=== PATIENT | male | born 1980 | race Caucasian/White ===

== ENCOUNTER 2016-04-13 23:03 | Emergency (ER) | payer SELFPAY ==
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
[2016-04-14] MEDS ORDERED: CYCLOBENZAPRINE 5 MG TAB PO STA (00:28)
[2016-04-14 00:53] VITALS: BP 122/65; PULSE 80; RESP 20; TEMP 98.1
== END 2016-04-14 00:53 | disposition home or self-care (01) ==
LOC: EC 23:03
DX: F07.81 Postconcussional syndrome (principal); M54.2 Cervicalgia; I10 Essential (primary) hypertension; F17.200 Nicotine dependence, unspecified, uncomplicated; W20.8XXA Other cause of strike by thrown, projected or falling object, initial encounter; Y99.0 Civilian activity done for income or pay
CPT/HCPCS: 70450; 72125; 99283

== ENCOUNTER 2016-10-08 13:14 | Emergency (ER) | payer OTHER ==
[2016-10-08 13:34] VITALS: BP 125/65; PULSE 97; RESP 18; TEMP 98
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
== END 2016-10-08 13:57 | disposition home or self-care (01) ==
LOC: EC 13:14
DX: Z76.0 Encounter for issue of repeat prescription (principal); F17.200 Nicotine dependence, unspecified, uncomplicated; Z79.899 Other long term (current) drug therapy
CPT/HCPCS: 99281

== ENCOUNTER 2016-12-15 03:19 | Observation (INO) | payer OTHER ==
[2016-12-15] MEDS ORDERED: ASPIRIN 81 MG PO STA (03:40)
[2016-12-15] MEDS ORDERED: NITROGLYCERIN SL TABS 0.4 MG TAB SUBLINGUAL STA ×3 (03:40)
--- NOTE | 2016-12-15 03:43 | ED ---
General Adult HPI - General Chief complaint: Chest Pain Stated complaint: Chest Pain Time Seen by Provider: 12/15/16 03:34 Source: patient, RN notes reviewed Mode of arrival: ambulatory Limitations: no limitations - History of Present Illness Initial comments: Patient is a pleasant 36-year-old male presenting to the emergency department with chest discomfort. Symptoms have been occurring for up to a year or more. Symptoms have been worse the past 3 days. Patient has had more stress the past 3 days. A mercado has an ache in his chest that does radiate somewhat to the back. Patient has had palpitations. Patient has had more frequent occurrence of his chronic migraines. Patient does have some associated dyspnea and occasional nausea. No diaphoresis. - Related Data Previous Rx's Medication Instructions Recorded Dextroamphetamine/Amphetamine 30 mg PO TID #12 tab 10/08/16 [Adderall] Allergies Allergy/AdvReac Type Severity Reaction Status Date / Time monosodium glutamate [MSG] AdvReac Nausea Verified 10/08/16 13:34 Review of Systems ROS Statement: Those systems with pertinent positive or pertinent negative responses have been documented in the HPI. ROS Other: All systems not noted in ROS Statement are negative. Constitutional: Denies: fever Eyes: Denies: eye pain ENT: Denies: ear pain Respiratory: Reports: dyspnea. Denies: cough Cardiovascular: Reports: chest pain Endocrine: Denies: fatigue Gastrointestinal: Denies: abdominal pain Genitourinary: Denies: dysuria Musculoskeletal: Denies: arthralgia Skin: Denies: rash Neurological: Denies: weakness, confusion Past Medical History Past Medical History: Hypertension Additional Past Medical History / Comment(s): migraines History of Any Multi-Drug Resistant Organisms: None Reported Past Surgical History: Back Surgery, Cholecystectomy, Orthopedic Surgery Additional Past Surgical History / Comment(s): rt shoulder Past Psychological History: No Psychological Hx Reported Smoking Status: Current every day smoker Past Alcohol Use History: Occasional Past Drug Use History: None Reported General Exam Limitations: no limitations General appearance: alert, in no apparent distress Head exam: Present: atraumatic Eye exam: Present: normal appearance, PERRL ENT exam: Present: normal oropharynx Neck exam: Present: normal inspection Respiratory exam: Present: normal lung sounds bilaterally Cardiovascular Exam: Present: regular rate, normal rhythm Expanded Peripheral pulses: 2+: Radial (R), Radial (L), Dorsalis Pedis (R), Dorsalis Pedis (L) GI/Abdominal exam: Present: soft. Absent: tenderness Extremities exam: Present: normal inspection. Absent: pedal edema, calf tenderness Back exam: Present: normal inspection Neurological exam: Present: alert. Absent: motor sensory deficit Psychiatric exam: Present: normal affect, normal mood Skin exam: Present: normal color Course Vital Signs 12/15/16 12/15/16 12/15/16 03:26 04:33 05:02 Temperature 98.0 F Pulse Rate 94 102 H 92 Respiratory 18 16 18 Rate Blood Pressure 142/75 125/68 133/90 O2 Sat by Pulse 98 98 98 Oximetry EKG Findings - EKG Comments: EKG Findings:: Normal sinus rhythm 96. WI 136. QRS 98. QT 346. QTc 437. Normal axis. Normal QRS. No acute ST change. Medical Decision Making - Medical Decision Making Patient reexamined and resting comfortably in bed. Patient states Ativan intensive bite his symptoms at first however now he feels better. Patient was updated on results and plan. Case discussed in detail with Dr. jorgensen, who will admit for observation for Dr. reyes. - Lab Data Result diagrams: 12/15/16 03:45 12/15/16 03:45 Lab Results 12/15/16 12/15/16 12/15/16 Range/Units 03:45 03:45 03:45 WBC 10.8 H (3.8-10.6) k/uL RBC 5.00 (4.30-5.90) m/uL Hgb 16.6 (13.0-17.5) gm/dL Hct 47.1 (39.0-53.0) % MCV 94.2 (80.0-100.0) fL MCH 33.2 (25.0-35.0) pg MCHC 35.3 (31.0-37.0) g/dL RDW 12.5 (11.5-15.5) % Plt Count 342 (150-450) k/uL Neutrophils % 61 % Lymphocytes % 29 % Monocytes % 4 % Eosinophils % 3 % Basophils % 0 % Neutrophils # 6.6 (1.3-7.7) k/uL Lymphocytes # 3.1 (1.0-4.8) k/uL Monocytes # 0.5 (0-1.0) k/uL Eosinophils # 0.3 (0-0.7) k/uL Basophils # 0.1 (0-0.2) k/uL PT (9.0-12.0) sec INR (<1.2) APTT (22.0-30.0) sec D-Dimer (<0.60) mg/L FEU Sodium 141 (137-145) mmol/L Potassium 4.1 (3.5-5.1) mmol/L Chloride 107 (98-107) mmol/L Carbon Dioxide 21 L (22-30) mmol/L Anion Gap 13 mmol/L BUN 12 (9-20) mg/dL Creatinine 0.90 (0.66-1.25) mg/dL Est GFR (MDRD) Af Amer >60 (>60 ml/min/1.73 sqM) Est GFR (MDRD) Non-Af >60 (>60 ml/min/1.73 sqM) Glucose 100 H (74-99) mg/dL Calcium 9.5 (8.4-10.2) mg/dL Magnesium 2.0 (1.6-2.3) mg/dL Total Bilirubin 0.6 (0.2-1.3) mg/dL AST 27 (17-59) U/L ALT 38 (21-72) U/L Alkaline Phosphatase 67 (38-126) U/L Total Creatine Kinase 274 H (55-170) U/L CK-MB (CK-2) 1.3 (0.0-2.4) ng/mL CK-MB (CK-2) Rel Index 0.5 Troponin I <0.012 (0.000-0.034) ng/mL Total Protein 7.3 (6.3-8.2) g/dL Albumin 4.6 (3.5-5.0) g/dL 12/15/16 Range/Units 03:45 WBC (3.8-10.6) k/uL RBC (4.30-5.90) m/uL Hgb (13.0-17.5) gm/dL Hct (39.0-53.0) % MCV (80.0-100.0) fL MCH (25.0-35.0) pg MCHC (31.0-37.0) g/dL RDW (11.5-15.5) % Plt Count (150-450) k/uL Neutrophils % % Lymphocytes % % Monocytes % % Eosinophils % % Basophils % % Neutrophils # (1.3-7.7) k/uL Lymphocytes # (1.0-4.8) k/uL Monocytes # (0-1.0) k/uL Eosinophils # (0-0.7) k/uL Basophils # (0-0.2) k/uL PT 10.2 (9.0-12.0) sec INR 1.0 (<1.2) APTT 25.9 (22.0-30.0) sec D-Dimer <0.17 (<0.60) mg/L FEU Sodium (137-145) mmol/L Potassium (3.5-5.1) mmol/L Chloride (98-107) mmol/L Carbon Dioxide (22-30) mmol/L Anion Gap mmol/L BUN (9-20) mg/dL Creatinine (0.66-1.25) mg/dL Est GFR (MDRD) Af Amer (>60 ml/min/1.73 sqM) Est GFR (MDRD) Non-Af (>60 ml/min/1.73 sqM) Glucose (74-99) mg/dL Calcium (8.4-10.2) mg/dL Magnesium (1.6-2.3) mg/dL Total Bilirubin (0.2-1.3) mg/dL AST (17-59) U/L ALT (21-72) U/L Alkaline Phosphatase (38-126) U/L Total Creatine Kinase (55-170) U/L CK-MB (CK-2) (0.0-2.4) ng/mL CK-MB (CK-2) Rel Index Troponin I (0.000-0.034) ng/mL Total Protein (6.3-8.2) g/dL Albumin (3.5-5.0) g/dL - Radiology Data Radiology results: image reviewed (Chest x-ray shows mild atelectasis versus early infiltrate) Disposition Clinical Impression: Chest pain Disposition: ADMITTED IP TO THIS [facility] Referrals: Marcin Skinner MD [Primary Care Provider] - 1-2 days Decision Time: 05:27
[2016-12-15 04:05] LABS: Basophils # (A) 0.1 k/uL (0-0.2); Basophils % (A) 0 %; CH 33.1; CHCM 35.3; Eosinophils # (A) 0.3 k/uL (0-0.7); Eosinophils % (A) 3 %; HCT 47.1 % (39.0-53.0); HDW 2.54; HGB 16.6 gm/dL (13.0-17.5); Luc # (Auto) 0.26; Luc % (Auto) 2; Lymphocytes # (A) 3.1 k/uL (1.0-4.8); Lymphocytes % (A) 29 %; MCH 33.2 pg (25.0-35.0); MCHC 35.3 g/dL (31.0-37.0); MCV 94.2 fL (80.0-100.0); Mean Platelet Volume 6.9; Monocytes # (A) 0.5 k/uL (0-1.0); Monocytes % (A) 4 %; Neutrophils # (A) 6.6 k/uL (1.3-7.7); Neutrophils % (A) 61 %; RDW 12.5 % (11.5-15.5); WBC 10.8 k/uL (3.8-10.6); WBC (Perox) 10.32
--- NOTE | 2016-12-15 04:07 | XR ---
EXAM: XR Chest, 2 Views CLINICAL HISTORY: Reason: Chest Pain TECHNIQUE: Frontal and lateral views of the chest. COMPARISON: No relevant prior studies available. FINDINGS: Lungs: Noted is consolidation. Streaky density in the medial right lower lung. Pleural space: Unremarkable. No pneumothorax. Heart: Unremarkable. No cardiomegaly. Mediastinum: Unremarkable. Bones/joints: Unremarkable. Tubes, lines and devices: Overlying chest leads obscure portion of the chest. IMPRESSION: Mild atelectasis versus early infiltrate in the medial right lower lung. Follow-up as indicated. No effusion
[2016-12-15 04:11] LABS: ALT 38 U/L (21-72); AST 27 U/L (17-59); Alkaline Phosphatase 67 U/L (38-126); Anion Gap 13 mmol/L; Blood Urea Nitrogen 12 mg/dL (9-20); Calcium 9.5 mg/dL (8.4-10.2); Carbon Dioxide 21 mmol/L (22-30); Chloride 107 mmol/L (98-107); Glucose 100 mg/dL (74-99); Non-African American GFR(MDRD) >60 (>60 ml/min/1.73 sqM); Partial Thromboplastin Time 25.9 sec (22.0-30.0); Potassium 4.1 mmol/L (3.5-5.1); Prothrombin Time 10.2 sec (9.0-12.0); Sodium 141 mmol/L (137-145); Total Bilirubin 0.6 mg/dL (0.2-1.3); Total Protein 7.3 g/dL (6.3-8.2)
[2016-12-15] MEDS ORDERED: LORazepam 2 MG/ML SYRINGE IV STA (04:21)
[2016-12-15 04:36] LABS: Creatine Kinase 274 U/L (55-170)
[2016-12-15 04:49] LABS: Creatine Kinase MB 1.3 ng/mL (0.0-2.4); Troponin I <0.012 ng/mL (0.000-0.034)
[2016-12-15] MEDS ORDERED: NITROGLYCERIN SL TABS 0.4 MG TAB SUBLINGUAL PRN (05:27)
[2016-12-15] MEDS: NITROGLYCERIN OINT 1 INCH/GM PACKET TOPICAL SCH ×2 (06:10→12:14)
[2016-12-15] MEDS ORDERED: ENOXAPARIN 40 MG/0.4 ML SYRINGE SQ SCH (09:00)
[2016-12-15 09:59] LABS: Creatine Kinase 206 U/L (55-170)
[2016-12-15 10:13] LABS: Troponin I <0.012 ng/mL (0.000-0.034)
--- NOTE | 2016-12-15 10:41 | P.CRDCN ---
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 His chest discomfort is sharp atypical pericardial without definite radiation to neck, back it is unassociated with diaphoresis and unrelated to exertion. He has had these episodes for the last several months. At the time of my evaluation he is sleeping soundly having taken an Ativan. EKG does not reveal ischemic changes first set of troponin is negative. Once the second set of troponin is available patient should be able to be discharged home and pursue workup as outpatient. I encouraged the patient to quit smoking and stop drinking Review of Systems Constitutional: Denies chills. Denies fever. Eyes: Denies blurred vision. Denies pain. Ears, nose, mouth and throat: Denies headache. Denies sore throat. Cardiovascular: has chest pain. Denies shortness of breath. Respiratory: Denies cough. Gastrointestinal: Denies abdominal pain. Denies diarrhea. Denies nausea. Denies vomiting. Musculoskeletal: Denies myalgias. Integumentary: Denies pruritus. Denies rash. Neurological: Denies numbness. Denies weakness. Psychiatric: Denies anxiety. Denies depression. Endocrine: Denies fatigue. Denies weight change. Genitourinary: Denies burning, hematuria, frequency of urination. Hematological: No anemia or excess bleeding. Past Medical History Past Medical History: Hypertension Additional Past Medical History / Comment(s): migraines History of Any Multi-Drug Resistant Organisms: None Reported Past Surgical History: Back Surgery, Cholecystectomy, Orthopedic Surgery Additional Past Surgical History / Comment(s): rt shoulder Past Psychological History: No Psychological Hx Reported Smoking Status: Current every day smoker Past Alcohol Use History: Occasional Past Drug Use History: None Reported Medications and Allergies Home Medications Medication Instructions Recorded Confirmed Type Dextroamphetamine/Amphetamine 30 mg PO TID #12 tab 10/08/16 12/15/16 Rx [Adderall] Allergies Allergy/AdvReac Type Severity Reaction Status Date / Time monosodium glutamate [MSG] AdvReac Nausea Verified 10/08/16 13:34 Physical Exam Vitals: Vital Signs Temp Pulse Pulse Resp BP BP Pulse Ox 12/15/16 08:00 97.7 F 72 16 120/52 97 12/15/16 05:56 18 12/15/16 05:55 97.8 F 74 18 110/57 93 L 12/15/16 05:02 92 18 133/90 98 12/15/16 04:33 102 H 16 125/68 98 12/15/16 03:26 98.0 F 94 18 142/75 98 Intake and Output 12/14/16 12/15/16 12/15/16 22:59 06:59 14:59 Other: Voiding Method Toilet Weight 81.647 kg General: The patient is awake and alert, in no distress, and does not appear acutely ill. Skin: Skin is warm and dry and no rashes or lesions are noted. Eye: Pupils are equal, round and reactive to light, extra-ocular movements are intact; there is normal conjunctiva bilaterally. Ears, nose, mouth and throat: There are moist mucous membranes and no oral lesions. Neck: The neck is supple, there is no tenderness or JVD. Cardiovascular: There is a regular rate and rhythm. No murmur, rub or gallop is appreciated. Respiratory: Lungs are clear to auscultation, respirations are non-labored, breath sounds are equal. Gastrointestinal: Soft, non-distended, non-tender abdomen without masses or organomegaly noted. There is no rebound or guarding present. Bowel sounds are unremarkable. Back: There is no tenderness to palpation in the midline. There is no obvious deformity. Musculoskeletal: Normal ROM, no tenderness, There is no pedal edema. There is no calf tenderness or swelling. Extremities: No edema. Vascular: Femoral pulse is normal. Posterior tibial pulses are normal .Dorsalis pedis is palpable. Neurological: CN II-XII intact. There are no obvious motor or sensory deficits. Speech is normal. Psychiatric: Cooperative, appropriate mood & affect, normal judgment. Results 12/15/16 03:45 12/15/16 03:45 Cardiac Enzymes 12/15/16 12/15/16 12/15/16 Range/Units 03:45 03:45 09:09 AST 27 (17-59) U/L CK-MB (CK-2) 1.3 1.0 (0.0-2.4) ng/mL Troponin I <0.012 <0.012 (0.000-0.034) ng/mL Coagulation 12/15/16 Range/Units 03:45 PT 10.2 (9.0-12.0) sec APTT 25.9 (22.0-30.0) sec CBC 12/15/16 Range/Units 03:45 WBC 10.8 H (3.8-10.6) k/uL RBC 5.00 (4.30-5.90) m/uL Hgb 16.6 (13.0-17.5) gm/dL Hct 47.1 (39.0-53.0) % Plt Count 342 (150-450) k/uL Comprehensive Metabolic Panel 12/15/16 Range/Units 03:45 Sodium 141 (137-145) mmol/L Potassium 4.1 (3.5-5.1) mmol/L Chloride 107 (98-107) mmol/L Carbon Dioxide 21 L (22-30) mmol/L BUN 12 (9-20) mg/dL Creatinine 0.90 (0.66-1.25) mg/dL Glucose 100 H (74-99) mg/dL Calcium 9.5 (8.4-10.2) mg/dL AST 27 (17-59) U/L ALT 38 (21-72) U/L Alkaline Phosphatase 67 (38-126) U/L Total Protein 7.3 (6.3-8.2) g/dL Albumin 4.6 (3.5-5.0) g/dL Current Medications Generic Name Dose Route Start Last Admin Trade Name Freq PRN Reason Stop Dose Admin Aspirin 325 mg 12/16/16 09:00 Aspirin PO DAILY [facility] Enoxaparin Sodium 40 mg 12/15/16 09:00 Lovenox SQ DAILY [facility] Nitroglycerin 1 inch 12/15/16 06:00 12/15/16 06:10 Nitro-Bid Oint TOPICAL Not Given Q6HR [facility] Nitroglycerin 0.4 mg 12/15/16 05:27 Nitrostat SUBLINGUAL Q5M PRN Chest Pain Sodium Chloride 10 ml 12/15/16 09:00 Saline Flush IV BID ALEX Intake and Output 12/14/16 12/15/16 12/15/16 22:59 06:59 14:59 Other: Voiding Method Toilet Weight 81.647 kg 12/15/16 03:45 12/15/16 03:45 EKG Interpretations (text) Normal sinus rhythm within normal limits Assessment and Plan Plan: Precordial chest pain Atypical probably noncardiac Obtain another set of troponin and if that's negative stable to be discharged home and outpatient workup in the form of an echo on the stress test
[2016-12-15] MEDS ORDERED: NAPROXEN 250 MG TAB PO SCH (11:00)
[2016-12-15 12:28] VITALS: BP 127/74; PULSE 85; RESP 18; TEMP 98
--- NOTE | 2016-12-16 05:46 | HP ---
HISTORY AND PHYSICAL DATE OF ADMISSION: 12/15/2016 PRESENTING COMPLAINT: Aches and pains. HISTORY OF PRESENTING COMPLAINT: This is a patient I saw this morning. Patient sees Dr. Skinner. The patient has good multitude of symptoms. Patient is under a lot of stress. He is dealing with his ex- and he has got a 6-year-old daughter and also has now got an ex-girlfriend. Because patient is stressed out, patient is smoking up to 3 packs of cigarettes a day. Patient barely gets to sleep. Patient hurts all over including the chest. Has got a slight cough. Patient gets very anxious at times and does take Adderall because of the diagnosis of ADD. Because some of symptoms also included chest pain, he was admitted for the same. A lot of his pain is in the back, neck and different areas and quite often reproducible, which is worse with activity when he is twisting and turning his body. REVIEW OF SYSTEMS: CONSTITUTIONAL: None. HEENT: None. RESPIRATORY: Occasional cough. CARDIOVASCULAR: As above. GASTROINTESTINAL: None GENITOURINARY: None. MUSCULOSKELETAL: Aches and pains in multiple joints and areas. DERMATOLOGICAL: Tattoos. LYMPHATICS: None. PSYCHIATRY: Very stressed out. NEUROLOGICAL: Poor sleep. PAST MEDICAL HISTORY: Hypertension, migraines. PAST SURGICAL HISTORY: Back surgery, cholecystectomy, right shoulder surgery, right leg tumor removed. SOCIAL HISTORY: Smoking up to 3 packs a day. Alcohol occasionally. 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 . FAMILY HISTORY: Reviewed, noncontributory to presentation. HOME MEDICATIONS: Adderall 30 mg p.o. t.i.d. ALLERGIES: Allergies to MONOSODIUM GLUTAMATE. PHYSICAL EXAMINATION: VITAL SIGNS ON PRESENTATION: Temperature 98, pulse 94, respirations 18, blood pressure 142/75, pulse ox 98% on room air. GENERAL APPEARANCE: Average built, sitting up, somewhat fidgety and restless. EYES: Pupils equal. Conjunctivae normal. HENT: Oral cavity normal. NECK: JVD not raised. Mass not palpable. RESPIRATORY: Effort normal. LUNGS: Slightly decreased breath sounds. CARDIOVASCULAR: First and second sounds normal. No edema. ABDOMEN: Soft, nontender. Liver and spleen not palpable. LYMPHATIC: No lymph node palpable in the neck or axillae. PSYCHIATRY: Alert and oriented x3, very anxious appearing. MUSCULOSKELETAL: Aches and pains in multiple different spots including the back, scapular area. INVESTIGATIONS: White count 10.8, hemoglobin 16.6. Potassium 4.1. Troponin x2 negative. Chest x-ray some mild atelectasis, if any. EKG normal sinus rhythm. ASSESSMENT: 1. Anxiety disorder, uncontrolled sometime manifesting as panic attacks and psychosomatic manifestations. 2. Musculoskeletal pain in multiple areas. 3. Severe sleep deprivation from stress. 4. Chronic nicotine dependence. Patient a heavy cigarette smoker. PLAN: Cardiology was consulted for their opinion. Serial cardiac enzymes were done. Will give naproxen for his pain. Patient counseled against smoking. I did talk to patient about mindfulness and to try that and also do some gentle exercises stretching exercises. The patient is quite happy with the advice. MMERICL / IJN: [id number] /
--- NOTE | 2016-12-16 07:46 | DS ---
DISCHARGE SUMMARY DATE OF ADMISSION: 12/15/2016 DATE OF DISCHARGE: 12/15/2016 FINAL DIAGNOSES: 1. Anxiety disorder, unspecified, sometimes leading to panic attacks with psychosomatic manifestation. 2. Acute on chronic musculoskeletal pain in multiple areas. 3. Chronic nicotine dependence. Patient active cigarette smoker. 4. Chronic severe sleep deprivation. CONSULTATION: Dr. Amy Welch from Cardiology. HOSPITAL COURSE: This patient having a lot of social issues. [place] to be mainly musculoskeletal pain, sleep deprivation. Does not have a cardiac presentation. Seen by Dr. Amy Welch from cardiology who will see the patient as an outpatient to do further workup. Patient was told about mindfulness and changing his lifestyle. Also counseled against smoking. ON EXAMINATION: LUNGS: Fair air entry. CARDIOVASCULAR: First and second sounds normal. DISCHARGE MEDICATIONS: 1. Adderall 30 mg p.o. t.i.d. 2. Naproxen 250 mg p.o. b.i.d. Follow up with Dr. Skinner in 3 days. Follow up with Dr. Amy Welch in 2 weeks. NOTE: As an outpatient we may want to cut back on his Adderall that may be contributing to his symptoms. The patient's family doctor to address when he sees him. MMODL / IJN: [id number] /
[2016-12-16] MEDS ORDERED: ASPIRIN 325 MG TAB PO SCH (09:00)
== END 2016-12-15 13:51 | disposition home or self-care (01) ==
LOC: EC 03:19 → 3OBS 05:27
PROVIDERS: ADMIT Hospitalist; ATTEND Hospitalist
DX: F41.0 Panic disorder [episodic paroxysmal anxiety] (principal); M79.1 Myalgia; Z72.820 Sleep deprivation; G89.29 Other chronic pain; F98.8 Other specified behavioral and emotional disorders with onset usually occurring in childhood and adolescence; Z63.9 Problem related to primary support group, unspecified; F10.10 Alcohol abuse, uncomplicated; F17.210 Nicotine dependence, cigarettes, uncomplicated; Z79.899 Other long term (current) drug therapy; Z91.048 Other nonmedicinal substance allergy status
CPT/HCPCS: 99285; 96374; 36415; 93005; 85379; 80053; 82550; 82553; 83735; 84484; 85025; 85610; 85730; 71020; G0378; J2060

== ENCOUNTER 2018-01-05 11:07 | Observation (INO) | payer OTHER ==
[2018-01-05] MEDS ORDERED: SODIUM CHLORIDE 0.9% 1,000 ML IV STA (11:40)
[2018-01-05] MEDS ORDERED: PANTOPRAZOLE 40 MG/10 ML VIAL IVP STA (11:40)
--- NOTE | 2018-01-05 11:45 | ED ---
General Adult HPI - General Chief complaint: Recheck/Abnormal Lab/Rx Stated complaint: chest pain, dizzy Time Seen by Provider: 01/05/18 11:28 Source: patient, RN notes reviewed Mode of arrival: wheelchair Limitations: no limitations - History of Present Illness Initial comments: Patient is a pleasant 37-year-old male presenting to the emergency Department with multiple complaints. Patient states he has been more stressed with the past few months. Patient states his blood pressure has been running high, as high as 160/75. Patient has noticed lightheadedness, especially with going from sitting to standing. Patient does notice some dyspnea on exertion. Patient also states sometimes he is having some chest discomfort with more moderate exertion. Patient also gets lightheaded at times with exertion. Patient has been having some nausea. Patient has had frequent urination and defecation. Patient has noticed some blood with his bowel movements the past several times. Patient notices some lower abdominal discomfort. - Related Data Home Medications Medication Instructions Recorded Confirmed No Known Home Medications 01/05/18 01/05/18 Allergies Allergy/AdvReac Type Severity Reaction Status Date / Time monosodium glutamate [MSG] AdvReac Nausea Verified 01/05/18 11:17 Review of Systems ROS Statement: Those systems with pertinent positive or pertinent negative responses have been documented in the HPI. ROS Other: All systems not noted in ROS Statement are negative. Constitutional: Denies: fever Eyes: Denies: eye pain ENT: Denies: ear pain Respiratory: Reports: as per HPI. Denies: cough Cardiovascular: Reports: as per HPI Endocrine: Reports: fatigue Gastrointestinal: Reports: abdominal pain, nausea, hematochezia. Denies: vomiting, constipation Genitourinary: Reports: frequency Musculoskeletal: Denies: arthralgia Skin: Denies: rash Neurological: Denies: confusion Past Medical History Past Medical History: Hypertension Additional Past Medical History / Comment(s): migraines. 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 Past Psychological History: No Psychological Hx Reported Smoking Status: Current every day smoker Past Alcohol Use History: Occasional Past Drug Use History: None Reported General Exam Limitations: no limitations General appearance: alert, in no apparent distress Head exam: Present: atraumatic Eye exam: Present: normal appearance, PERRL ENT exam: Present: normal oropharynx Neck exam: Present: normal inspection Respiratory exam: Present: normal lung sounds bilaterally. Absent: chest wall tenderness Cardiovascular Exam: Present: regular rate, normal rhythm Expanded Peripheral pulses: 2+: Radial (R), Radial (L), Posterior Tibialis (R), Posterior Tibialis (L), Dorsalis Pedis (R), Dorsalis Pedis (L) GI/Abdominal exam: Present: soft, tenderness (Mild tenderness suprapubic region) , normal bowel sounds. Absent: distended, guarding, rebound, rigid, pulsatile mass Rectal exam: Present: normal inspection. Absent: black stool, bloody stool Extremities exam: Present: normal inspection. Absent: pedal edema, calf tenderness Neurological exam: Present: alert Psychiatric exam: Present: normal affect, normal mood Skin exam: Present: normal color Course Vital Signs 01/05/18 01/05/18 11:08 13:07 Temperature 98.1 F Pulse Rate 81 68 Respiratory 18 18 Rate Blood Pressure 152/93 133/68 O2 Sat by Pulse 99 98 Oximetry EKG Findings - EKG Comments: EKG Findings:: Normal sinus rhythm at 68. OK 166. QRS 98. QT 360. QTC 382. Normal axis. Normal QRS. No acute ST change. Medical Decision Making - Medical Decision Making Patient reevaluated and resting comfortably in bed. Heparin will be held at this time secondary to Hemoccult-positive. Patient updated on results and plan. Case was discussed in detail with Dr. Givens, who will admit for hospital call with [facility]. - Lab Data Result diagrams: 01/05/18 11:45 01/05/18 11:45 Lab Results 01/05/18 01/05/18 01/05/18 Range/Units 11:45 11:45 11:45 WBC 6.4 (3.8-10.6) k/uL RBC 5.29 (4.30-5.90) m/uL Hgb 16.5 (13.0-17.5) gm/dL Hct 50.2 (39.0-53.0) % MCV 94.9 (80.0-100.0) fL MCH 31.1 (25.0-35.0) pg MCHC 32.8 (31.0-37.0) g/dL RDW 12.7 (11.5-15.5) % Plt Count 293 (150-450) k/uL Neutrophils % 61 % Lymphocytes % 29 % Monocytes % 6 % Eosinophils % 2 % Basophils % 1 % Neutrophils # 3.9 (1.3-7.7) k/uL Lymphocytes # 1.8 (1.0-4.8) k/uL Monocytes # 0.4 (0-1.0) k/uL Eosinophils # 0.1 (0-0.7) k/uL Basophils # 0.0 (0-0.2) k/uL PT (9.0-12.0) sec INR (<1.2) APTT (22.0-30.0) sec Sodium 142 (137-145) mmol/L Potassium 4.8 (3.5-5.1) mmol/L Chloride 109 H (98-107) mmol/L Carbon Dioxide 23 (22-30) mmol/L Anion Gap 10 mmol/L BUN 16 (9-20) mg/dL Creatinine 0.78 (0.66-1.25) mg/dL Est GFR (CKD-EPI)AfAm >90 (>60 ml/min/1.73 sqM) Est GFR (CKD-EPI)NonAf >90 (>60 ml/min/1.73 sqM) Glucose 89 (74-99) mg/dL Calcium 9.7 (8.4-10.2) mg/dL Total Bilirubin 0.8 (0.2-1.3) mg/dL AST 31 (17-59) U/L ALT 22 (21-72) U/L Alkaline Phosphatase 57 (38-126) U/L Total Creatine Kinase 123 (55-170) U/L CK-MB (CK-2) 0.8 (0.0-2.4) ng/mL CK-MB (CK-2) Rel Index 0.7 Troponin I <0.012 (0.000-0.034) ng/mL Total Protein 7.7 (6.3-8.2) g/dL Albumin 4.6 (3.5-5.0) g/dL Urine Color Urine Appearance (Clear) Urine pH (5.0-8.0) Ur Specific [place] (1.001-1.035) Urine Protein (Negative) Urine Glucose (UA) (Negative) Urine Ketones (Negative) Urine Blood (Negative) Urine Nitrite (Negative) Urine Bilirubin (Negative) Urine Urobilinogen (<2.0) mg/dL Ur Leukocyte Esterase (Negative) Stool Occult Blood (Negative) 01/05/18 01/05/18 01/05/18 Range/Units 11:45 11:45 12:46 WBC (3.8-10.6) k/uL RBC (4.30-5.90) m/uL Hgb (13.0-17.5) gm/dL Hct (39.0-53.0) % MCV (80.0-100.0) fL MCH (25.0-35.0) pg MCHC (31.0-37.0) g/dL RDW (11.5-15.5) % Plt Count (150-450) k/uL Neutrophils % % Lymphocytes % % Monocytes % % Eosinophils % % Basophils % % Neutrophils # (1.3-7.7) k/uL Lymphocytes # (1.0-4.8) k/uL Monocytes # (0-1.0) k/uL Eosinophils # (0-0.7) k/uL Basophils # (0-0.2) k/uL PT 10.2 (9.0-12.0) sec INR 1.0 (<1.2) APTT 24.1 (22.0-30.0) sec Sodium (137-145) mmol/L Potassium (3.5-5.1) mmol/L Chloride (98-107) mmol/L Carbon Dioxide (22-30) mmol/L Anion Gap mmol/L BUN (9-20) mg/dL Creatinine (0.66-1.25) mg/dL Est GFR (CKD-EPI)AfAm (>60 ml/min/1.73 sqM) Est GFR (CKD-EPI)NonAf (>60 ml/min/1.73 sqM) Glucose (74-99) mg/dL Calcium (8.4-10.2) mg/dL Total Bilirubin (0.2-1.3) mg/dL AST (17-59) U/L ALT (21-72) U/L Alkaline Phosphatase (38-126) U/L Total Creatine Kinase (55-170) U/L CK-MB (CK-2) (0.0-2.4) ng/mL CK-MB (CK-2) Rel Index Troponin I (0.000-0.034) ng/mL Total Protein (6.3-8.2) g/dL Albumin (3.5-5.0) g/dL Urine Color Light Yellow Urine Appearance Clear (Clear) Urine pH 6.0 (5.0-8.0) Ur Specific [place] 1.005 (1.001-1.035) Urine Protein Negative (Negative) Urine Glucose (UA) Negative (Negative) Urine Ketones Negative (Negative) Urine Blood Negative (Negative) Urine Nitrite Negative (Negative) Urine Bilirubin Negative (Negative) Urine Urobilinogen <2.0 (<2.0) mg/dL Ur Leukocyte Esterase Negative (Negative) Stool Occult Blood Positive (Negative) - Radiology Data Radiology results: image reviewed (Chest x-ray shows no acute process. Abdominal x-ray shows questionable early ileus.) Disposition Clinical Impression: Chest pain Disposition: ADMITTED IP TO THIS HOSP Is patient prescribed a controlled substance at d/c from ED?: No Referrals: Hunter Frey DO [Primary Care Provider] - 1-2 days Decision Time: 13:34
[2018-01-05 12:09] LABS: Basophils % (A) 1 %; Eosinophils # (A) 0.1 k/uL (0-0.7); Eosinophils % (A) 2 %; HCT 50.2 % (39.0-53.0); HGB 16.5 gm/dL (13.0-17.5); Lymphocytes # (A) 1.8 k/uL (1.0-4.8); Lymphocytes % (A) 29 %; MCH 31.1 pg (25.0-35.0); MCHC 32.8 g/dL (31.0-37.0); MCV 94.9 fL (80.0-100.0); Mean Platelet Volume 7.6; Monocytes # (A) 0.4 k/uL (0-1.0); Monocytes % (A) 6 %; Neutrophils # (A) 3.9 k/uL (1.3-7.7); Neutrophils % (A) 61 %; Platelet Count 293 k/uL (150-450); RBC 5.29 m/uL (4.30-5.90); RDW 12.7 % (11.5-15.5); WBC 6.4 k/uL (3.8-10.6)
[2018-01-05 12:21] LABS: Partial Thromboplastin Time 24.1 sec (22.0-30.0); Prothrombin Time 10.2 sec (9.0-12.0)
[2018-01-05 12:24] LABS: ALT 22 U/L (21-72); AST 31 U/L (17-59); Albumin 4.6 g/dL (3.5-5.0); Alkaline Phosphatase 57 U/L (38-126); Anion Gap 10 mmol/L; Blood Urea Nitrogen 16 mg/dL (9-20); Calcium 9.7 mg/dL (8.4-10.2); Carbon Dioxide 23 mmol/L (22-30); Chloride 109 mmol/L (98-107); Glucose 89 mg/dL (74-99); Potassium 4.8 mmol/L (3.5-5.1); Sodium 142 mmol/L (137-145); Total Bilirubin 0.8 mg/dL (0.2-1.3); Total Protein 7.7 g/dL (6.3-8.2)
[2018-01-05 12:28] LABS: Creatine Kinase 123 U/L (55-170)
--- NOTE | 2018-01-05 12:29 | XR ---
EXAMINATION TYPE: XR chest 2V DATE OF EXAM: 01/05/2018 COMPARISON: Prior chest x-ray 12/15/2016 HISTORY: Chest pain and hypertension TECHNIQUE: Frontal and lateral views of the chest are obtained. FINDINGS: There is no focal air space opacity, pleural effusion, or pneumothorax seen. The cardiac silhouette size is within normal limits. The osseous structures are intact. There are overlying car diac leads. IMPRESSION: No acute cardiopulmonary process.
--- NOTE | 2018-01-05 12:30 | XR ---
Abdomen HISTORY: Pain, dizziness Frontal view of the abdomen on 2 images correlated to prior exam 07/27/2015 Surgical clips are present in the right upper quadrant. There are air-fluid levels without distention . Lung bases are clear. There are overlying cardiac leads. Bone mineralization is maintained. Surgica l clip in the pelvis. IMPRESSION: There could be underlying ileus, follow-up as indicated.
[2018-01-05 12:40] LABS: Creatine Kinase MB 0.8 ng/mL (0.0-2.4); Troponin I <0.012 ng/mL (0.000-0.034)
[2018-01-05 12:46] LABS: Appearance,Urine Clear (Clear); Bilirubin,Urine Negative (Negative); Blood,Urine Negative (Negative); Color,Urine Light Yellow; Glucose,Urine (UA) Negative (Negative); Ketones,Urine Negative (Negative); Leukocyte Esterase,Urine Negative (Negative); Nitrite,Urine Negative (Negative); Protein,Urine Negative (Negative); Specific Gravity,Urine 1.005 (1.001-1.035); Urobilinogen,Urine <2.0 mg/dL (<2.0)
[2018-01-05] MEDS ORDERED: NITROGLYCERIN SL TABS 0.4 MG TAB SUBLINGUAL PRN (13:34)
--- NOTE | 2018-01-05 14:52 | P.HPIM ---
History of Present Illness H&P Date: 01/05/18 Chief Complaint: Shortness of breath The patient is a 37 yo M with the PMH of HTN, active smoker (2 1/2 PPD), and chronic back pain who presented to the ED w/ c/o gradually worsening dyspnea on exertion, dizziness, and intermittent chest pain. 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 He also endorsed worsening exercise tolerance and intermittent vague epigastric chest discomfort sometimes associated w/ exertion but which he also attributes to his GERD. He further endorsed worsening GERD symptoms not controlled w/ tums w/ associated diarrhea, though denied melena, hematochezia, weight loss, nausea, vomiting, or constipation. Patient drinks 2-3 energy drinks (Brand name: [employer]) containing 300 mg of caffeine a day, along with taking Motrin 3-4x/week and Alleve 4-5x/week. He otherwise denied palpitations, fever, chills, cough, hemoptysis, recent travel, dysuria, or sick contacts. Review of Systems Pertinent positives and negatives as discussed in HPI, a complete review of systems was performed and all other systems are negative. Past Medical History Past Medical History: Hypertension Additional Past Medical History / Comment(s): migraines. 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 Past Psychological History: No Psychological Hx Reported Smoking Status: Current every day smoker Past Alcohol Use History: Occasional Past Drug Use History: None Reported Medications and Allergies Home Medications Medication Instructions Recorded Confirmed Type No Known Home Medications 01/05/18 01/05/18 History Allergies Allergy/AdvReac Type Severity Reaction Status Date / Time monosodium glutamate [MSG] AdvReac Nausea Verified 01/05/18 11:17 Physical Exam Vitals: Vital Signs Temp Pulse Resp BP Pulse Ox 01/05/18 14:23 75 18 135/82 97 01/05/18 14:12 65 18 142/75 99 01/05/18 13:07 68 18 133/68 98 01/05/18 11:08 98.1 F 81 18 152/93 99 Intake and Output 09/30/18 10/01/18 10/01/18 22:59 06:59 14:59 Other: Weight 86.183 kg General: [non toxic], [no distress], [appears at stated age], [normal weight] Derm: [scattered areas of patchy hypopigmentation on back, w/ mild flaking, non- tender, non-erythematous] [no unusual ecchymoses], [warm], [dry] Head: [atraumatic], [normocephalic], [symmetric] Eyes: [EOMI], [no lid lag], [anicteric sclera], [pupils equal round reactive to light] ENT: [Nose and ears atraumatic], [no thrush], [no pharyngeal erythema] Neck: [No thyromegaly], [no cervical lymphadenopathy], [trachea midline], [ supple] Mouth: [no lip lesion], [mucus membranes moist] Cardiovascular: [S1S2 reg], [no murmur], [positive posterior tibial pulse bilateral], [no edema], [capillary refill less than 2 seconds] Lungs: [CTA bilateral], [no rhonchi, no rales] , [no accessory muscle use] Abdominal: [soft], [ nontender to palpation], [no guarding], [no appreciable organomegaly], [normal bowel sounds] Ext: [no gross muscle atrophy], [muscle strength 5 out of 5 in all 4 extremities grossly], [no contractures], Neuro: [ CN II-XI grossly intact], [light touch intact all 4 extremities], [ finger to nose within normal limits], Psych: [Alert], [oriented], [appropriate affect] Results CBC & Chem 7: 01/05/18 11:45 01/05/18 11:45 Labs: Abnormal Lab Results - Last 24 Hours (Table) 01/05/18 Range/Units 11:45 Chloride 109 H (98-107) mmol/L Assessment and Plan Plan: Chest pain, SOB, EKG unremarkable, Troponin neg x 1 - Will admit to [facility] w/ Cardiology evaluation - C/w Telemetry monitoring - Trend troponin - No active chest pain at this time. Will hold off on Heparin for now - Pt counselled on avoidance of excessive caffeine use Abdominal pain, FOBT positive, hgb 16.5 - Suspected PUD in light of excessive NSAID and Caffeine use - Consult GI - Start Protonix PO qd - Counselled on avoidance of NSAID and Caffeine use HTN - Possibly secondary to excessive caffeine use. Will monitor for now. Skin lesions on back, likely fungal infection (tinea versicolor) - Will start Ketoconazole topical DVT//GI prophylaxis - IPCDs - No indication for GI prophylaxis The patient is placed under observation with an anticipated stay of less than 2 midnights for evaluation of chest pain CODE STATUS:Full-code Discussed with: Patient, girlfriend Anticipated discharge date: 01/06/[address]: Home A total of 65 minutes was spent on the care of this complex patient more than 50 % of the time was spent in counseling and care coordination.
[2018-01-05] MEDS: NITROGLYCERIN OINT 1 INCH/GM PACKET TOPICAL SCH (16:49)
[2018-01-05 17:52] LABS: Creatine Kinase 106 U/L (55-170)
[2018-01-05 18:05] LABS: Creatine Kinase MB 0.6 ng/mL (0.0-2.4); Troponin I <0.012 ng/mL (0.000-0.034)
[2018-01-05] MEDS: ACETAMINOPHEN TAB 325 MG TAB PO PRN (18:33)
--- NOTE | 2018-01-05 18:42 | ECHOF ---
Referral Reason:cp MEASUREMENTS -------- HEIGHT: 182.9 cm WEIGHT: 86.2 kg BP: 135/82 RVIDd: 2.8 cm (< 3.3) IVSd: 0.9 cm (0.6 - 1.1) LVIDd: 5.4 cm (3.9 - 5.3) LVPWd: 0.9 cm (0.6 - 1.1) IVSs: 1.1 cm LVIDs: 3.3 cm LVPWs: 1.5 cm LAESV Index (A-L): 19.72 ml/m Ao Diam: 3.4 cm (2.0 - 3.7) AV Cusp: 1.9 cm (1.5 - 2.6) LA Diam: 2.5 cm (2.7 - 3.8) EPSS: 0.6 cm MV E Jason: 1.00 m/s MV DecT: 324 ms MV A Jason: 0.53 m/s MV E/A Ratio: 1.88 RAP: 5.00 mmHg RVSP: 18.14 mmHg MV EF SLOPE: 132.56 mm/s (70 - 150) MV EXCURSION: 1.94 cm (> 18.000) FINDINGS -------- Sinus rhythm. This was a technically adequate study. The left ventricular size is normal. Left ventricular wall thickness is normal. Overall left vent ricular systolic function is normal with, an EF between 55 - 60 %. The right ventricle is normal in size and function. Normal LA size by volume 22+/-6 ml/m2. The right atrium is normal in size. The aortic valve is trileaflet, and appears structurally normal. No aortic stenosis or regurgitation. The mitral valve is normal. There is trace mitral regurgitation. The tricuspid valve appears structurally normal. Trace tricuspid regurgitation present. Right tr tricular systolic pressure is normal at < 35 mmHg. Trace/mild (physiologic) pulmonic regurgitation. The aortic root size is normal. Normal inferior vena cava with normal inspiratory collapse consistent with estimated right atrial pre ssure of 5 mmHg. There is no pericardial effusion. CONCLUSIONS -------- 1. Sinus rhythm. 2. This was a technically adequate study. 3. The left ventricular size is normal. 4. Left ventricular wall thickness is normal. 5. Overall left ventricular systolic function is normal with, an EF between 55 - 60 %. 6. Normal LA size by volume 22+/-6 ml/m2. 7. The aortic valve is trileaflet, and appears structurally normal. No aortic stenosis or regurgitati on. 8. There is trace mitral regurgitation. 9. Trace tricuspid regurgitation present. 10. Right ventricular systolic pressure is normal at < 35 mmHg. 11. Trace/mild (physiologic) pulmonic regurgitation. 12. The aortic root size is normal. 13. There is no pericardial effusion. ASSISTANT PROFESSOR OF EDUCATION: Jerson Lomeli RDCS
--- NOTE | 2018-01-05 19:14 | CONS ---
CONSULTATION DATE OF SERVICE: 01/05/2018. CHIEF COMPLAINT: Chest pain. HISTORY: Db is a 37-year-old gentleman with no significant past medical history who presented to hospital complaining of chest pain. He describes it as a sharp precordial pain unrelated to exertion or diaphoresis, mild intensity. He has been having these symptoms on and off for the last several weeks. He was concerned and came in. He has been in the lot of anxiety because of what is going on in his family. 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 Does not get any chest pain when he is working, but he does get episodes of dizziness and lightheadedness. He is a smoker. There is no history of EtOH abuse or drug abuse. He also consumes quite a bit of energy drinks. PAST MEDICAL HISTORY: Negative for hypertension, diabetes and dyslipidemia. MEDICATIONS: None. ALLERGIES: None. FAMILY HISTORY: Negative for premature coronary artery disease. FAMILY HISTORY: Significant for parkinsonism and stroke. ALLERGIES: No known drug allergies. REVIEW OF SYSTEMS: HEENT: Unremarkable. CARDIAC: As described above. RESPIRATORY: Negative. GI: Negative. GENITALIA: Negative. ALLERGY: None. SKIN: Negative. MUSCULOSKELETAL: Negative. ENDOCRINE: None. CONSTITUTIONAL: Negative. ONCOLOGICAL: Negative. OFFICE CLERK ROUTINE: Negative. The rest of the system review is not relevant. EXAM: Patient is comfortable at rest. Heart rate is 75 beats per minute. Blood pressure is 135/80, respirations 18, O2 sat is 97% on room air. There is no jugular venous distention. Carotid upstroke is normal. There is no bruit. Chest exam reveals good air entry bilaterally. Heart exam reveals first and second heart sounds. No gallop. No murmur. No rub. Abdomen is soft, nontender. Exam of extremities did not reveal any edema. Peripheral pulses are felt. LABS: Labs show a hemoglobin of 16.5, platelet count is 293,000, creatinine is 0.78. Troponin is normal. EKG shows normal sinus rhythm, normal axis, normal intervals. Chest x-ray is within normal limits. ASSESSMENT: Precordial chest pain. The patient's chest discomfort is sharp, atypical. We will obtain serial troponins to rule out myocardial infarction. If the myocardial infarction is ruled out, obtain a stress test and echocardiogram on him. If the stress test is negative, discharge him home and arrange outpatient followup. MMODL / IJN: [id number] /
[2018-01-05] MEDS: ZOLPIDEM 5 MG TAB PO PRN (21:26)
[2018-01-05] MEDS: CLOTRIMAZOLE 1% CREAM 15 GM TUBE TOPICAL SCH (21:46)
[2018-01-06] MEDS: NITROGLYCERIN OINT 1 INCH/GM PACKET TOPICAL SCH ×2 (00:27→05:11)
[2018-01-06 00:40] LABS: Creatine Kinase 98 U/L (55-170)
[2018-01-06 00:53] LABS: Creatine Kinase MB 0.6 ng/mL (0.0-2.4); Troponin I <0.012 ng/mL (0.000-0.034)
[2018-01-06] MEDS ORDERED: PANTOPRAZOLE 40 MG TABLET PO SCH ×2 (07:30→17:30)
[2018-01-06 07:39] LABS: Basophils # (A) 0.1 k/uL (0-0.2); Basophils % (A) 1 %; Eosinophils # (A) 0.3 k/uL (0-0.7); Eosinophils % (A) 4 %; HGB 15.3 gm/dL (13.0-17.5); Lymphocytes # (A) 3.1 k/uL (1.0-4.8); Lymphocytes % (A) 41 %; MCH 30.8 pg (25.0-35.0); MCV 96.3 fL (80.0-100.0); Mean Platelet Volume 7.2; Monocytes # (A) 0.6 k/uL (0-1.0); Monocytes % (A) 7 %; Neutrophils # (A) 3.3 k/uL (1.3-7.7); Neutrophils % (A) 44 %; Platelet Count 309 k/uL (150-450); RBC 4.98 m/uL (4.30-5.90); RDW 12.8 % (11.5-15.5); WBC 7.5 k/uL (3.8-10.6)
[2018-01-06 07:55] LABS: ALT 22 U/L (21-72); AST 19 U/L (17-59); Albumin 3.9 g/dL (3.5-5.0); Alkaline Phosphatase 43 U/L (38-126); Anion Gap 4 mmol/L; Blood Urea Nitrogen 17 mg/dL (9-20); Calcium 9.3 mg/dL (8.4-10.2); Carbon Dioxide 30 mmol/L (22-30); Chloride 108 mmol/L (98-107); Cholesterol 184 mg/dL (<200); Glucose 90 mg/dL (74-99); HDL Cholesterol 54 mg/dL (40-60); LDL Cholesterol,Calculated 100 mg/dL (0-99); Magnesium 2.1 mg/dL (1.6-2.3); Potassium 4.9 mmol/L (3.5-5.1); Sodium 142 mmol/L (137-145); Total Bilirubin 0.4 mg/dL (0.2-1.3); Total Protein 6.6 g/dL (6.3-8.2); Triglycerides 150 mg/dL (<150)
--- NOTE | 2018-01-06 08:26 | P.PN ---
Subjective Mr. Lainez is seen and examined sitting up in bed. He continues to feel discomfort in his abdomen described as a burning sensation with radiation to the chest at times. No shortness of breath, nausea, vomiting, dizziness or palpitations. No specific aggravating or alleviating factors. Laboratory data reviewed, cardiac enzymes negative x2, sodium 142, potassium 4.9, creatinine 0.8 , hemoglobin 15.3, platelets 309, occult blood positive, LDL 100, HDL 54, a glycerin 150 total cholesterol 184. Echocardiogram obtained yesterday reveals preserved left ventricular systolic function with ejection fraction 55-60%. Blood pressure 127/73 heart rate 66 afebrile maintaining oxygen saturation on room air. He is waiting for GI services see him as well. Objective - Vital Signs Vital signs: Vital Signs Temp 97.4 F L 01/06/18 03:29 Pulse 66 01/06/18 03:29 Resp 16 01/06/18 03:59 BP 122/62 01/06/18 03:29 Pulse Ox 98 01/06/18 03:29 Intake & Output 01/05/18 01/06/18 01/06/18 18:59 06:59 18:59 Weight 86.183 kg Other: Voiding Method Toilet Toilet # Voids 3 - Exam GENERAL: Well-appearing, well-nourished and in no acute distress. NECK: Supple without JVD or thyromegaly. LUNGS: Breath sounds clear to auscultation bilaterally. Respiration equal and unlabored. No wheezes, rales or rhonchi. HEART: Regular rate and rhythm without murmurs, rubs or gallops. S1 and S2 heard. EXTREMITIES: Normal range of motion, no edema. No clubbing or cyanosis. Peripheral pulses intact. - Labs CBC & Chem 7: 01/06/18 06:16 01/06/18 06:16 Labs: Abnormal Lab Results - Last 24 Hours (Table) 01/05/18 Range/Units 11:45 Chloride 109 H (98-107) mmol/L Assessment and Plan Assessment: ASSESSMENT Chest pain, atypical. An acute coronary event has been ruled out with no EKG evidence of ischemia and negative cardiac enzymes. Chronic nicotine dependence PLAN Proceed with stress echocardiogram to assess for stress induced ischemia. Smoking cessation recommended. LDL cholesterol upper limits of normal, recommendations given for lowering with diet and exercise. If stress test is normal he is stable from a cardiac perspective. Ongoing evaluation by primary and GI team for source of discomfort. Follow up with Dr. Welch upon discharge. Nurse Practitioner note has been reviewed, I agree with a documented findings and plan of care. Patient was seen and examined.
--- NOTE | 2018-01-06 12:53 | P.CONS ---
History of Present Illness - Reason for Consult Consult date: 01/06/18 abdominal pain Requesting physician: Lucrecia Powell - Chief Complaint abdominal pain - History of Present Illness 37-year-old male admitted with acute chest abdominal pain shortness of breath with a past history of hypertension, "gastric ulcers", nicotine cigarette dependency 2 packs per day, chronic back pain with previous history of opioid usage. Patient states his been very stressed over last month for personal reasons. He drinks 2-3 energy drinks a day as well as taking 2 tablets of ALEVE /Motrin daily 3-4 days week for chronic back pain. Patient has been seen by cardiology stress test was completely this morning results are pending. Patient describes his pain as very burning in nature "on fire" across lower abdomen extending up and lying. Denies hematemesis or melena. He said looser bowel movements described as blood tinged. FOBT positive. EGD performed by Dr. Estrella July 2013 at [facility] for evaluation of epigastric pain identified grade 2 distal esophagitis small sliding hiatal hernia mild gastritis, duodenitis but no ulcers gastric obstruction or strictures, Madrigal's esophagus. Hemoglobin on admission 16.5 presently 15.3. MCV 96. Platelet 309. White count 7.5. INR 1.0. BUN 16. Creatinine 0.7. Abdominal x-rays possible ileus. Review of Systems Constitutional: Denies fever, chills, sweats, weight gain, or loss. HEENT: Negative for migraines, blurred vision or loss, earaches, drainage, tinnitus, oral mucosal lesions, dysphagia, or odynophagia. Cardiac: Negative for chest pain, arrhythmias, or palpitation. Respiratory: Negative for shortness of breath, hemoptysis, cough, or sputum production. Gastrointestinal: See HPI for pertinent findings. Genitourinary: Negative for hematuria, urgency, frequency, polyuria, dysuria, or penile discharge. Musculoskeletal: Chronic back pain. Negative for muscle aches, swelling, arthritis, and arthralgias. Neurologic: Negative for stroke or TIA. Endocrine: Negative for thyroid problems. Skin: Negative for rash or itching. Psychiatric: Negative history for depression and anxiety Past Medical History Past Medical History: Hypertension Additional Past Medical History / Comment(s): migraines. 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 Past Anesthesia/Blood Transfusion Reactions: No Reported Reaction Past Psychological History: No Psychological Hx Reported Smoking Status: Current every day smoker Past Alcohol Use History: Occasional Past Drug Use History: None Reported - Past Family History Father Family Medical History: Myocardial Infarction ([place]) Additional Family Medical History / Comment(s): Father of a [place] at the age of 61 yrs. Mother Family Medical History: Cancer Additional Family Medical History / Comment(s): Mother has stage IV lymphoma. Medications and Allergies Home Medications Medication Instructions Recorded Confirmed Type No Known Home Medications 01/05/18 01/05/18 History Allergies Allergy/AdvReac Type Severity Reaction Status Date / Time monosodium glutamate [MSG] AdvReac Nausea Verified 01/05/18 11:17 Physical Exam Vitals: Vital Signs Temp Pulse Pulse Resp BP BP BP 01/06/18 11:10 97.9 F 76 18 112/68 01/06/18 07:05 97.9 F 66 18 127/73 01/06/18 03:59 16 01/06/18 03:29 97.4 F L 66 16 122/62 01/06/18 00:00 16 01/05/18 23:54 97.8 F 60 16 108/56 01/05/18 20:00 18 01/05/18 18:28 98.6 F 65 18 143/70 01/05/18 18:12 64 18 01/05/18 14:40 97.7 F 64 18 138/79 01/05/18 14:23 75 18 135/82 01/05/18 14:12 65 18 142/75 01/05/18 13:07 68 18 133/68 Pulse Ox 01/06/18 11:10 95 01/06/18 07:05 97 01/06/18 03:59 01/06/18 03:29 98 01/06/18 00:00 01/05/18 23:54 97 01/05/18 20:00 01/05/18 18:28 94 L 01/05/18 18:12 01/05/18 14:40 98 01/05/18 14:23 97 01/05/18 14:12 99 01/05/18 13:07 98 Intake and Output 01/05/18 01/06/18 01/06/18 22:59 06:59 14:59 Other: Voiding Method Toilet Toilet Toilet # Voids 2 3 General appearance: The patient is alert, oriented, in no acute distress. HET: Head is normocephalic and atraumatic. Pupils are equal and reactive. Oropharynx is clear without lesions. Neck: Supple without lymphadenopathy. Trachea midline. Heart: S1 S2. Regular rate and rhythm. Lungs: No crackles or wheezes are heard. Abdomen: Soft, mild tenderness around the umbilicus left lower quadrant, nondistended with bowel sounds. No peritoneal signs. No palpable organomegaly or masses. Extremities: Normal skin color and turgor. No cyanosis, rash, ulceration, clubbing, or edema. Radial and pedal pulses are 2/4 bilaterally. Neurological: No focal deficits. Strength and sensation are grossly intact. Results CBC & Chem 7: 01/06/18 06:16 01/06/18 06:16 Labs: Abnormal Lab Results - Last 24 Hours (Table) 01/06/18 Range/Units 06:16 Chloride 108 H (98-107) mmol/L Triglycerides 150 H (<150) mg/dL LDL Cholesterol, Calc 100 H (0-99) mg/dL Abdominal x-ray: report reviewed (Dr. Palomo) Assessment and Plan (1) Abdominal pain Narrative/Plan: 37 y/o male admitted with acute chest abdominal pain with chronic NSAID usage and reported bloody stools, positive FOBT with stable hemoglobin possible GERD possible esophagitis possible peptic ulcer disease. Colonic pathology cannot be excluded. EGD July 2013 at [facility] for epigastric pain reported no evidence of peptic ulcer disease. Current Visit: Yes Status: Acute Code(s): R10.9 - UNSPECIFIED ABDOMINAL PAIN SNOMED Code(s): 00876308 (2) Chest pain Narrative/Plan: Stress test completed results are pending. Current Visit: Yes Status: Acute Code(s): R07.9 - CHEST PAIN, UNSPECIFIED SNOMED Code(s): 06726914 Plan: 1. Protonic 40 mg twice daily. Await stress test results if negative we'll proceed with EGD colonoscopy tomorrow. Clear liquid diet if agreeable with cardiology. Nothing by mouth after midnight. CBC monitoring. Hold NSAIDs. 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 The patient has indicated understanding and acceptance of the risks and procedures discussed. Thank you for this kind referral and the opportunity to participate in the care of your patient. This consultation was discussed with Dr. Palomo. The impression and plan of care have been directed as dictated.
[2018-01-06] MEDS ORDERED: BISACODYL 5 MG TABLET.DR PO STA (13:10)
--- NOTE | 2018-01-06 13:13 | P.PN ---
Progress Note - Text Progress Note Date: 01/06/18 Verbal report stress test negative per cardiology SENIOR INSPECTOR Digna Lyles. Will proceed with EGD/colonoscopy tomorrow.
[2018-01-06] MEDS: CLOTRIMAZOLE 1% CREAM 15 GM TUBE TOPICAL SCH ×2 (13:41→21:01)
--- NOTE | 2018-01-06 14:35 | ECHOS ---
STRESS ECHOCARDIOGRAM INDICATIONS: Chest pain. MEDICATIONS: None. BASELINE HEART RATE: 69 BASELINE BLOOD PRESSURE: 100/54 MAXIMUM HEART RATE: 165 MAXIMUM BLOOD PRESSURE: 201/72 85% MPHR: 156 100% MPHR: 184 METS: 13.3 MAXIMUM STAGE REACHED: IV TOTAL EXERCISE TIME: 13:01 CLINICAL INFORMATION: Baseline rhythm is sinus mechanism, rate 69, normal axis, intervals, normal echocardiogram, baseline blood pressure 100/54 mmHg. Patient exercised on Rene protocol for 13 minute 1 seconds reaching a peak rate 164 beats per minute which is equal to 89% maximum predicted heart rate. Peak blood pressure 201/72 mmHg. Test was terminated due to fatigue. Patient had chest discomfort during the exercise. Electrocardiographic monitoring revealed no evidence of diagnostic ischemic ST deviation. FINDINGS: Baseline echocardiogram revealed known normal wall motion. At peak exercise, there was normal wall motion augmentation with no hypokinesis or dyskinesis. CONCLUSION: 1. Good exercise tolerance with normal tricuspid echocardiographic response toe exercise. 2. Normal stress echocardiogram with no evidence of stress-induced ischemia. MMODL / IJN: [id number] /
[2018-01-06] MEDS: ACETAMINOPHEN TAB 325 MG TAB PO PRN (15:00)
[2018-01-06] MEDS ORDERED: PEG 3350-NA SULF,BICARB,CL/KCL 4,000 ML BOTTLE PO ONE (15:00)
--- NOTE | 2018-01-06 15:04 | P.PN ---
Subjective Progress Note Date: 01/06/18 The patient was seen and examined at the bedside. The patient continues to c/o epigastric burning pain but otherwise denied any chest pain, SOB, nausea, vomiting, diarrhea, constipation, fever, chills, or dysuria. Objective - Vital Signs Vital signs: Vital Signs Temp 97.9 F 01/06/18 11:10 Pulse 76 01/06/18 11:10 Resp 18 01/06/18 11:10 BP 112/68 01/06/18 11:10 Pulse Ox 95 01/06/18 11:10 Intake & Output 01/05/18 01/06/18 01/06/18 18:59 06:59 18:59 Intake Total 354 Balance 354 Weight 86.183 kg Intake: Oral 354 Other: Voiding Method Toilet Toilet Toilet # Voids 3 - Exam General: Non-toxic, in no acute distress HEENT: NC/AT, anicteric sclerae, moist conjunctiva, no lid-lag, PERRLA, oropharynx clear, no erythema, exudates Cardiovascular: S1/S2 wnl, no murmurs, rubs, or gallops Lungs: Clear to auscultation, normal respiratory effort, no accessory muscle use Abdominal: Soft, nontender, non-distended, no guarding, rebound, or rigidity, normoactive bowel sounds Skin: Warm, dry Extremities: No edema or contractures Psychiatric: Alert and oriented to person, place and time, appropriate affect, Intact judgment Neuro: CN II-XII grossly intact, no focal motor deficits - Labs CBC & Chem 7: 01/06/18 06:16 01/06/18 06:16 Labs: Abnormal Lab Results - Last 24 Hours (Table) 01/06/18 Range/Units 06:16 Chloride 108 H (98-107) mmol/L Triglycerides 150 H (<150) mg/dL LDL Cholesterol, Calc 100 H (0-99) mg/dL Assessment and Plan Plan: Chest pain, SOB, EKG unremarkable, Troponin neg x 3 - Stress Echocardiogram preliminary report negative - Pt to f/u w/ Cardiology as outpatient Abdominal pain, FOBT positive, hgb 16.5 - GI recs appreciated - Pt to undergo EGD/Colonoscopy in am - C/w Protonix bid - Counselled on avoidance of NSAID and Caffeine use HTN, presently normal BP - Possibly secondary to excessive caffeine use. Will monitor for now. Skin lesions on back, likely fungal infection (tinea versicolor) - Will c/w Ketoconazole topical DVT//GI prophylaxis - IPCDs - No indication for GI prophylaxis The patient is placed under observation with an anticipated stay of less than 2 midnights for evaluation of chest pain CODE STATUS:Full-code Discussed with: Patient Anticipated discharge date: 01/07/[address]: Home A total of 65 minutes was spent on the care of this complex patient more than 50 % of the time was spent in counseling and care coordination.
[2018-01-06] MEDS: PANTOPRAZOLE 40 MG/10 ML VIAL IVP SCH (16:51)
[2018-01-06] MEDS ORDERED: LACTATED RINGERS 1,000 ML IV SCH (17:30)
[2018-01-06] MEDS: ZOLPIDEM 5 MG TAB PO PRN (20:00)
[2018-01-06] MEDS ORDERED: MELATONIN 3 MG TABLET PO SCH (21:00)
[2018-01-07] MEDS: PANTOPRAZOLE 40 MG/10 ML VIAL IVP SCH (08:21)
[2018-01-07] MEDS: CLOTRIMAZOLE 1% CREAM 15 GM TUBE TOPICAL SCH (10:01)
[2018-01-07] MEDS ORDERED: PROPOFOL 10 MG/ML 20 ML VIAL IV ONE (12:48)
[2018-01-07] MEDS ORDERED: LIDOCAINE 1% INJ 10MG/ML (20 ML MDV) ONE (12:48)
[2018-01-07] MEDS ORDERED: IV FLUID CONTINUATION 1,000 ML IV ONE ×2 (12:52→13:47)
--- NOTE | 2018-01-07 14:03 | P.PCN ---
Date of Procedure: 01/07/18 Description of Procedure: Brief history: Patient is a pleasant 37-year-old male patient who presented to the hospital with complaints of abdominal pain and hematochezia. The patient has had worsening abdominal pain prior to presentation described as in the epigastric area and diffusely across lower abdomen. In addition he noticed blood per rectum. Hemoglobin was normal and imaging studies unremarkable on presentation. The patient was scheduled for upper endoscopy and colonoscopy for further evaluation. Procedure performed: Esophagogastroduodenoscopy with cold biopsy Colonoscopy Estimated blood loss: Minimal. Preoperative diagnosis: Epigastric abdominal pain, hematochezia Anesthesia: MAC Procedure: After informed consent was obtained from the patient was brought into the endoscopy unit and IV sedation was administered by anesthesia under continuous monitoring. Initially upper endoscopy was done. The Olympus GF 190 video endoscope was inserted inserted into the mouth and esophagus intubated without any difficulty and was gradually advanced into the stomach and duodenum and carefully examined. The bulb and second part of the duodenum appeared normal, with biopsies taken to rule out celiac disease. The scope was then withdrawn into the stomach adequately insufflated with air and upon careful examination the antrum and body, cardia and fundus appeared grossly normal, with mild scattered erythema in the antrum and body which was biopsied. The scope was then withdrawn into the esophagus. The GE junction was located at 41 cm to the incisors with an irregular Z line noted and biopsied. The esophagus appeared regular with no erythema erosions or ulceration. Patient tolerated the procedure well. At this time the patient continued to remain sedation. Initial digital rectal examination was normal. Olympus CF 190 video colonoscope was then inserted into the rectum and gradually advanced to the cecum without any difficulty. Careful examination was performed as the scope was gradually being withdrawn. The prep was fair. The cecum, ascending colon, transverse colon, descending colon, sigmoid colon and rectum appeared normal. Retroflexion was performed in the rectum and no lesions were noted, and mild nonbleeding internal hemorrhoids seen. Patient tolerated the procedure well. Impression: 1. Irregular Z line, biopsied. Gastritis, biopsied. Duodenum normal, biopsied. 2. Mild internal hemorrhoids with no active bleeding. Recommendations: Findings of this examination were discussed with the patient as well as female partner. Okay for diet. Await pathology. Follow up with GI in 2 weeks.
[2018-01-07 14:13] VITALS: RESP 16
[2018-01-07 14:51] VITALS: TEMP 98
--- NOTE | 2018-01-07 14:58 | P.DS ---
Providers Date of admission: 01/05/18 13:35 Expected date of discharge: 01/07/18 Attending physician: Lucrecia Powell MD Consults: 01/05/18 13:34 Consult Physician Urgent Consulting Provider: Suresh Estrella Consult Reason/Comments: gi hemorrhage Do you want consulting provider notified?: Yes 01/05/18 13:35 Consult Physician Urgent Consulting Provider: Gt Samuels Consult Reason/Comments: cp Do you want consulting provider notified?: Yes [facility] Course: The patient is a 37-year-old male with a past medical history of hypertension, and chronic back pain who presented to the ED with intermittent chest pain, and shortness of breath. The patient had also endorsed epigastric burning like pain with GERD symptoms and associated diarrhea. The patient was admitted under observation for cardiology evaluation and underwent an exercise stress test which was unremarkable. Transthoracic echo showed normal LV EF and normal wall thickness. The patient was also evaluated by gastroenterology who recommended an EGD and colonoscopy which showed gastritis, and mild internal hemorrhoids with no active bleeding. The patient is presently stable, and ready for discharge to home. Physical Examination General: Awake, alert, in no acute distress HEENT: NC/AT, anicteric sclerae, moist conjunctiva, no lid-lag, PERRLA, oropharynx clear, no erythema, exudates Cardiovascular: S1/S2 wnl, no murmurs, rubs, or gallops Lungs: Clear to auscultation, normal respiratory effort, no accessory muscle use Abdominal: Soft, nontender, non-distended, no guarding, rebound, or rigidity, normoactive bowel sounds Skin: Warm, dry Extremities: No edema or contractures Psychiatric: Alert and oriented to person, place and time, appropriate affect, Intact judgment Neuro: CN II-XI grossly intact, sensation to light touch grossly present throughout, no focal sensory deficits Discharge diagnosis:Chest pain, Gastritis, elevated BP secondary to excessive caffeine use, tinea versicolor A total of 60 minutes of time were spent preparing this complex discharge summary. Pertinent Studies: Transthoracic echo: LVEF: 55-60%, normal LV wall thickness EGD/colonoscopy: Irregular Z line, biopsied. Gastritis, biopsy. Duodenal normal, biopsy. Mild internal hemorrhoids with no active bleeding. Patient Condition at Discharge: Stable Plan - Discharge Summary Discharge Rx Participant: No New Discharge Prescriptions: New Clotrimazole Cream [Lotrimin Cream] 1 applic TOPICAL BID #1 applic Omeprazole 40 mg PO QAM #30 capsule. Discharge Medication List Clotrimazole Cream [Lotrimin Cream] 1 applic TOPICAL BID #1 applic 01/07/18 [Rx] Omeprazole 40 mg PO QAM #30 capsule. 01/07/18 [Rx] Follow up Appointment(s)/Referral(s): Hunter Frey DO [Primary Care Provider] - 1-2 days Igor Welch MD [STAFF PHYSICIAN] - 2 Weeks Activity/Diet/Wound Care/Special Instructions: Please avoid caffeine and NSAID use. F/u with Cardiology and GI clinics as advised. Discharge Disposition: HOME SELF-CARE
[2018-01-07 15:29] VITALS: BP 155/77; PULSE 63
== END 2018-01-07 15:53 | disposition home or self-care (01) ==
LOC: EC 11:07 → 6SEL 13:35 → 3OBS 18:16
PROVIDERS: ADMIT Internal Medicine; ATTEND Internal Medicine
DX: R07.89 Other chest pain (principal); K29.50 Unspecified chronic gastritis without bleeding; K64.8 Other hemorrhoids; I15.8 Other secondary hypertension; T43.615A Adverse effect of caffeine, initial encounter; K92.1 Melena; B36.0 Pityriasis versicolor; G43.909 Migraine, unspecified, not intractable, without status migrainosus; F17.210 Nicotine dependence, cigarettes, uncomplicated; R35.0 Frequency of micturition; K21.0 Gastro-esophageal reflux disease with esophagitis; F41.9 Anxiety disorder, unspecified; R42 Dizziness and giddiness; M54.9 Dorsalgia, unspecified; G89.29 Other chronic pain; R19.7 Diarrhea, unspecified; Z91.02 Food additives allergy status; Z90.49 Acquired absence of other specified parts of digestive tract; Z87.11 Personal history of peptic ulcer disease; Z82.3 Family history of stroke; Z82.0 Family history of epilepsy and other diseases of the nervous system; Z82.49 Family history of ischemic heart disease and other diseases of the circulatory system; Z80.7 Family history of other malignant neoplasms of lymphoid, hematopoietic and related tissues; Z79.1 Long term (current) use of non-steroidal anti-inflammatories (NSAID)
CPT/HCPCS: 96376 ×2; 96361; 96374; 99285; 36415; 93005; 93306; 93351; 88305; 80061; 80053 ×2; 82550; 82553; 83735; 84484; 85025 ×2; 85610; 85730; 82272; 81003; 71046; 74018; 45378; 43239; G0378 ×3; J2001; J2704; C9113 ×3

== ENCOUNTER 2018-05-31 06:17 | Emergency (ER) | payer OTHER ==
[2018-05-31] MEDS ORDERED: LORazepam 1 MG TAB PO STA ×2 (07:01→08:29)
--- NOTE | 2018-05-31 07:04 | ED ---
General Adult HPI - General Source: patient, family, RN notes reviewed, old records reviewed Mode of arrival: wheelchair <Darwin James - Last Filed: 05/31/18 07:01> <Gerson Kathleen - Last Filed: 05/31/18 09:28> - General Chief complaint: Alcohol Stated complaint: ETOH Time Seen by Provider: 05/31/18 06:42 - History of Present Illness Initial comments: 37 -year-old male presenting for psychiatric evaluation. Patient states he has spent about. Patient is feeling anxious, stating he feels like he is crawling out of his skin. He is also had some alcohol level not in significant quantities. Denies any other illicit drugs. Denies artem suicidal ideation but does feel uneasy and states this is not normal for him. He is seeking medical attention and wishing he could be placed in rehabilitation. No previous diagnosis of bipolar or schizophrenia. Patient states he has had depression and anxiety in the past. Not currently on any medications. Only medical issues are musculoskeletal nature. Patient does report recent fall with low back pain and some numbness into his right lower extremity. No bowel or bladder incontinence. No saddle anesthesia. No difficulty with ambulation. (Darwin James) - Related Data Previous Rx's Medication Instructions Recorded Clotrimazole Cream [Lotrimin Cream] 1 applic TOPICAL BID #1 applic 01/07/18 Omeprazole 40 mg PO QAM #30 capsule. 01/07/18 Allergies Allergy/AdvReac Type Severity Reaction Status Date / Time monosodium glutamate [MSG] AdvReac Nausea Verified 01/05/18 11:17 Review of Systems ROS Other: All systems not noted in ROS Statement are negative. <Darwin James - Last Filed: 05/31/18 07:01> ROS Other: All systems not noted in ROS Statement are negative. <Gerson Kathleen - Last Filed: 05/31/18 09:28> ROS Statement: Those systems with pertinent positive or pertinent negative responses have been documented in the HPI. Past Medical History Past Medical History: Hypertension Additional Past Medical History / Comment(s): migraines. 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 Past Anesthesia/Blood Transfusion Reactions: No Reported Reaction Past Psychological History: No Psychological Hx Reported Smoking Status: Current every day smoker Past Alcohol Use History: Occasional - Past Family History Father Family Medical History: Myocardial Infarction (NC) Additional Family Medical History / Comment(s): Father of a NC at the age of 61 yrs. Mother Family Medical History: Cancer Additional Family Medical History / Comment(s): Mother has stage IV lymphoma. <Darwin James - Last Filed: 05/31/18 07:01> General Exam General appearance: alert, in no apparent distress, anxious Head exam: Present: atraumatic, normocephalic Eye exam: Present: normal appearance, PERRL ENT exam: Present: normal exam Neck exam: Present: normal inspection. Absent: tenderness, meningismus Respiratory exam: Present: normal lung sounds bilaterally. Absent: respiratory distress, wheezes Cardiovascular Exam: Present: normal rhythm, tachycardia GI/Abdominal exam: Present: soft. Absent: distended, tenderness Extremities exam: Present: normal inspection, normal capillary refill, other Back exam: Absent: vertebral tenderness Neurological exam: Present: alert, oriented X3, CN II-XII intact, normal gait, motor sensory deficit (Numbness, right lower extremity) Psychiatric exam: Present: agitated, anxious, manic Skin exam: Present: warm, dry, intact. Absent: cyanosis, diaphoretic <Darwin James - Last Filed: 05/31/18 07:01> Course <Darwin James - Last Filed: 05/31/18 07:01> <Gerson Kathleen - Last Filed: 05/31/18 09:28> Vital Signs 05/31/18 06:19 Temperature 98.3 F Pulse Rate 100 Respiratory 104 H Rate Blood Pressure 104/67 O2 Sat by Pulse 100 Oximetry - Reevaluation(s) Reevaluation #1: 05/31/18 07:04 Patient's care is signed out at shift change to Dr. Kathleen awaiting lumbar x-ray, and EPS evaluation. (Darwin James) Medical Decision Making <Darwin James - Last Filed: 05/31/18 07:01> <Gerson Kathleen - Last Filed: 05/31/18 09:28> - Medical Decision Making EPS evaluated the patient and determined that he needs to follow up with rehabilitation for his methamphetamine abuse. Patient denied being suicidal throughout his stay in the emergency department and stated he would be safe he just wanted some help from coming off the methamphetamine. Patient states she will follow-up with rehab on Friday (Gerson Kathleen) - Lab Data Lab Results 05/31/18 Range/Units 07:20 Urine Opiates Screen Not Detected (NotDetected) Ur Oxycodone Screen Not Detected (NotDetected) Urine Methadone Screen Not Detected (NotDetected) Ur Propoxyphene Screen Not Detected (NotDetected) Ur Barbiturates Screen Not Detected (NotDetected) U Tricyclic Antidepress Not Detected (NotDetected) Ur Phencyclidine Scrn Not Detected (NotDetected) Ur Amphetamines Screen Detected H (NotDetected) U Methamphetamines Scrn Detected H (NotDetected) U Benzodiazepines Scrn Not Detected (NotDetected) Urine Cocaine Screen Not Detected (NotDetected) U Marijuana (THC) Screen Not Detected (NotDetected) Disposition <Darwin James - Last Filed: 05/31/18 07:01> Is patient prescribed a controlled substance at d/c from ED?: No Time of Disposition: 09:27 <Gerson Kathleen - Last Filed: 05/31/18 09:28> Clinical Impression: Methamphetamine abuse, Anxiety Disposition: HOME SELF-CARE Instructions (If sedation given, give patient instructions): Methamphetamine Abuse (ED) Additional Instructions: Patient needs to follow up with a rehabilitation center. Referrals: Hunter Frey DO [Primary Care Provider] - 1-2 days
[2018-05-31 07:36] LABS: Amphetamine Screen,Urine Detected (NotDetected); Barbiturate Screen,Urine Not Detected (NotDetected); Benzodiazepines Screen,Urine Not Detected (NotDetected); Cocaine Screen,Urine Not Detected (NotDetected); Methadone Screen, Urine Not Detected (NotDetected); Opiate Screen,Urine Not Detected (NotDetected); Oxycodone Screen, Urine Not Detected (NotDetected); Phencyclidine Screen,Urine Not Detected (NotDetected); Tricyclic Antidepressant,Urine Not Detected (NotDetected); Urn Cannabinoid Scrn Not Detected (NotDetected)
--- NOTE | 2018-05-31 07:57 | XR ---
EXAMINATION TYPE: XR lumbar spine 2 or 3V DATE OF EXAM: 05/31/2018 COMPARISON: None HISTORY: Pain lower back TECHNIQUE: Three-view lumbar spine FINDINGS: There 5 lumbar-type she will bodies. Pedicles are intact. Disc heights are preserved. Verte bral body heights are preserved. Subtle side bending towards the left is present. This could be posit ional. IMPRESSION: 1. No acute osseous abnormality lumbar spine.
[2018-05-31] MEDS ORDERED: KETOROLAC 60 MG/2 ML VIAL IM STA (08:29)
[2018-05-31] MEDS ORDERED: OXYMETAZOLINE 0.05% NASL SPRAY 1 SPRAY BOTTLE NASAL STA (08:30)
[2018-05-31 09:45] VITALS: BP 126/74; PULSE 89; RESP 18; TEMP 98.1
== END 2018-05-31 09:45 | disposition home or self-care (01) ==
LOC: EC 06:17
DX: F15.10 Other stimulant abuse, uncomplicated (principal); F41.9 Anxiety disorder, unspecified; M54.5 Low back pain; R20.0 Anesthesia of skin; F17.200 Nicotine dependence, unspecified, uncomplicated; Z98.890 Other specified postprocedural states; Z88.8 Allergy status to other drugs, medicaments and biological substances
CPT/HCPCS: 80306; 72100; 99284; 96372; J1885; 82075

== ENCOUNTER 2018-08-21 20:17 | Emergency (ER) | payer OTHER ==
[2018-08-21 20:36] VITALS: TEMP 98.1
[2018-08-21] MEDS ORDERED: KETOROLAC 60 MG/2 ML VIAL IM STA (21:19)
[2018-08-21] MEDS ORDERED: METHOCARBAMOL 500 MG TAB PO ONE (21:19)
--- NOTE | 2018-08-21 21:27 | ED ---
General Adult HPI - General Chief complaint: Back Pain/Injury Stated complaint: Rib pain Time Seen by Provider: 08/21/18 21:08 Source: patient Mode of arrival: ambulatory Limitations: no limitations - History of Present Illness Initial comments: Patient is a 37-year-old male who presents with a chief complaint of right-sided upper back pain. His been going on for 10 days alert worse over the last 2-3 patient cannot identify inciting incident. He states that he was recently treated for walking pneumonia and since that time has had worsening pain. He was seen at [facility] for the same issue where the patient was evaluated for PE, he had a negative computed tomography scan. Patient states his pain is worse with movement, specifically of the right upper extremity. It is worse with palpation of the back. Patient has been using Motrin and lidocaine patches for pain relief, he states he gets more relief from the lidocaine patches. Patient was also discharged on Vicodin which she states did not do much for his pain. - Related Data Home Medications Medication Instructions Recorded Confirmed Hydrocodone/Acetaminophen [Sherman 1 tab PO Q6HR PRN 08/21/18 08/21/18 5-325] Ibuprofen [Motrin] 600 mg PO Q8HR PRN 08/21/18 08/21/18 Lidocaine 5% Patch [Lidoderm] 1 patch TOPICAL DAILY PRN 08/21/18 08/21/18 Previous Rx's Medication Instructions Recorded Acetaminophen Tab [Tylenol Tab] 1,000 mg PO Q8HR #30 tablet 08/21/18 Cyclobenzaprine [Flexeril] 10 mg PO TID PRN #20 tab 08/21/18 Ibuprofen [Motrin] 800 mg PO Q8H #30 tab 08/21/18 oxyCODONE HCL [Oxaydo] 5 mg PO Q6H PRN 3 Days #12 tab 08/21/18 Allergies Allergy/AdvReac Type Severity Reaction Status Date / Time monosodium glutamate [MSG] AdvReac Nausea Verified 08/21/18 20:50 Review of Systems ROS Statement: Those systems with pertinent positive or pertinent negative responses have been documented in the HPI. ROS Other: All systems not noted in ROS Statement are negative. Musculoskeletal: Reports: back pain Past Medical History Past Medical History: Hypertension Additional Past Medical History / Comment(s): migraines. 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 Past Anesthesia/Blood Transfusion Reactions: No Reported Reaction Past Psychological History: No Psychological Hx Reported Smoking Status: Current every day smoker Past Alcohol Use History: Occasional Past Drug Use History: None Reported - Past Family History Father Family Medical History: Myocardial Infarction (ME) Additional Family Medical History / Comment(s): Father of a ME at the age of 61 yrs. Mother Family Medical History: Cancer Additional Family Medical History / Comment(s): Mother has stage IV lymphoma. General Exam Limitations: no limitations General appearance: alert, in no apparent distress Head exam: Present: atraumatic, normocephalic Eye exam: Present: normal appearance ENT exam: Present: normal exam Neck exam: Present: normal inspection Respiratory exam: Present: normal lung sounds bilaterally. Absent: respiratory distress, wheezes Cardiovascular Exam: Present: regular rate, normal rhythm GI/Abdominal exam: Present: soft Rectal exam: Present: deferred Extremities exam: Present: normal inspection, other (patient has back pain with movement of the RUE. ). Absent: full ROM Back exam: Present: normal inspection, tenderness, muscle spasm, paraspinal tenderness, other (patient has exquisit tenderness with palpation of the right latissimus dorsi muscle. ). Absent: vertebral tenderness, rash noted Neurological exam: Present: alert, oriented X3, CN II-XII intact, normal gait Psychiatric exam: Present: normal affect, normal mood Skin exam: Present: warm, dry, intact Course Vital Signs 08/21/18 20:31 Temperature 98.1 F Pulse Rate 91 Respiratory 20 Rate Blood Pressure 167/82 O2 Sat by Pulse 99 Oximetry Medical Decision Making - Medical Decision Making Patient presents with chief complaint of back pain. On initial evaluation, vitals are stable, patient is in mild distress secondary to pain. He has exquisite tenderness with movement of the right upper extremity and palpation of the latissimus dorsi on the right. Patient was recently evaluated at [facility] where he had a computed tomography scan to rule out PE. This scan was negative. History and physical examination is most consistent with muscular skeletal-type back pain. Patient will have a dedicated right-sided rib x-ray to rule out occult fractures, especially given that this is been going on for 10 days. Patient given Robaxin, and IM Toradol. 10:13 PM X-rays of the right show a nondisplaced fracture of the third rib. Urine dip and review, it appears to be mildly displaced. No evidence of pleural effusion, or pneumothorax. Patient was updated on the results. At this time, the patient will be written for Motrin, Tylenol, Flexeril, and oxycodone. Patient written for 3 days of oxycodone. I had a long discussion with him regarding the use of his medication. 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 The patient verbalizes understanding. Patient was instructed to follow-up with primary care 1-2 days, return to the symptoms worsen or change. He was given a referral to orthopedics. Disposition Clinical Impression: Rib fracture, Back pain Disposition: HOME SELF-CARE Condition: Good Instructions (If sedation given, give patient instructions): Rib Fracture (ED) Is patient prescribed a controlled substance at d/c from ED?: Yes When asked, does pt state using other controlled substances?: No If prescribed controlled substance>3 days was MAPS reviewed?: Prescribed <3 Days If opioid is for acute pain is fill amount 7 days or less?: Yes If Rx opioid, was Start Talking consent form obtained?: Yes Referrals: None,Stated [Primary Care Provider] - 1-2 days Kristie Hermosillo MD [STAFF PHYSICIAN] - 1-2 days Jose Fairchild MD [STAFF PHYSICIAN] - 1-2 days
--- NOTE | 2018-08-21 22:00 | XR ---
EXAMINATION TYPE: XR ribs RT w pa chest xray DATE OF EXAM: 08/21/2018 COMPARISON: NONE HISTORY: Rib pain TECHNIQUE: 5 views FINDINGS: Heart and mediastinum are normal. Lungs are clear. There is no sign of pleural effusion or pneumothorax. There is nondisplaced fracture lateral right third rib. There is some arthritic change in the right shoulder joint. IMPRESSION: Right third rib fracture. Normal heart.
[2018-08-21 22:37] VITALS: BP 180/99; PULSE 81; RESP 16
== END 2018-08-21 22:43 | disposition home or self-care (01) ==
LOC: EC 20:17
DX: S22.31XA Fracture of one rib, right side, initial encounter for closed fracture (principal); F17.200 Nicotine dependence, unspecified, uncomplicated; Z98.890 Other specified postprocedural states; Z88.8 Allergy status to other drugs, medicaments and biological substances
CPT/HCPCS: 71101; 99284; 96372; J1885

== ENCOUNTER 2018-12-27 21:31 | Emergency (ER) | payer OTHER ==
[2018-12-27 21:45] VITALS: RESP 18; TEMP 97.9
[2018-12-27] MEDS ORDERED: LORazepam 2 MG/ML INJ IM STA (21:58)
[2018-12-27] MEDS ORDERED: diphenhydrAMINE 50 MG/ML 1 ML VIAL IM STA (21:59)
[2018-12-27] MEDS ORDERED: HALOPERIDOL LACTATE 5 MG/ML 1 ML VIAL IM STA (21:59)
[2018-12-27 23:03] LABS: Basophils # (A) 0.1 k/uL (0-0.2); Basophils % (A) 1 %; Eosinophils # (A) 0.1 k/uL (0-0.7); Eosinophils % (A) 2 %; HCT 45.6 % (39.0-53.0); HGB 15.2 gm/dL (13.0-17.5); Lymphocytes % (A) 38 %; MCH 32.1 pg (25.0-35.0); MCHC 33.4 g/dL (31.0-37.0); MCV 96.2 fL (80.0-100.0); Mean Platelet Volume 6.8; Monocytes # (A) 0.5 k/uL (0-1.0); Monocytes % (A) 6 %; Neutrophils # (A) 3.8 k/uL (1.3-7.7); Neutrophils % (A) 49 %; Platelet Count 334 k/uL (150-450); RBC 4.75 m/uL (4.30-5.90); RDW 15.2 % (11.5-15.5); WBC 7.7 k/uL (3.8-10.6)
[2018-12-27 23:16] LABS: African American GFR (CKD) >90 (>60 ml/min/1.73 sqM); Anion Gap 12 mmol/L; Blood Urea Nitrogen 18 mg/dL (9-20); Calcium 9.2 mg/dL (8.4-10.2); Carbon Dioxide 24 mmol/L (22-30); Chloride 107 mmol/L (98-107); Glucose 91 mg/dL (74-99); Sodium 143 mmol/L (137-145)
[2018-12-27 23:18] LABS: Alcohol 237 mg/dL
[2018-12-28] MEDS ORDERED: LORazepam 2 MG/ML INJ IM STA (02:21)
[2018-12-28] MEDS ORDERED: LORazepam 1 MG TAB PO STA (02:23)
--- NOTE | 2018-12-28 02:46 | ED ---
Psych HPI - General Chief Complaint: Psychiatric Symptoms Stated Complaint: Mental Health Time Seen by Provider: 12/27/18 21:58 Source: patient Mode of arrival: ambulatory - History of Present Illness Initial Comments: Is a 38-year-old alcoholic male who presents to the emergency department today with police for evaluation of alcohol intoxication and depression. Patient was petitioned by his girlfriend and states he was making suicidal statements. Patient states that he is an alcoholic and needs to go to alcohol rehab. He denies making any suicidal statements. - Related Data Home Medications Medication Instructions Recorded Confirmed No Known Home Medications 12/27/18 12/27/18 Allergies Allergy/AdvReac Type Severity Reaction Status Date / Time monosodium glutamate [MSG] AdvReac Nausea Verified 12/27/18 22:23 Review of Systems ROS Statement: Those systems with pertinent positive or pertinent negative responses have been documented in the HPI. ROS Other: All systems not noted in ROS Statement are negative. Past Medical History Past Medical History: Hypertension Additional Past Medical History / Comment(s): migraines. 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 Past Anesthesia/Blood Transfusion Reactions: No Reported Reaction Past Psychological History: No Psychological Hx Reported Smoking Status: Current every day smoker Past Alcohol Use History: Abuse, Daily Past Drug Use History: Cocaine, Marijuana - Past Family History Father Family Medical History: Myocardial Infarction (ID) Additional Family Medical History / Comment(s): Father of a ID at the age of 61 yrs. Mother Family Medical History: Cancer Additional Family Medical History / Comment(s): Mother has stage IV lymphoma. General Exam - General Exam Comments Initial Comments: Physical Exam GENERAL: Patient is well-developed and well-nourished. Patient is nontoxic and well-hydrated and is in no distress. HENT: Normocephalic, Atraumatic. EYES: PERRL, EOMI PULMONARY: Unlabored respirations CARDIOVASCULAR: RRR ABDOMEN: Soft and nontender with normal bowel sounds. SKIN: Skin is clear with no lesions or rashes and otherwise unremarkable. : Deferred NEUROLOGIC: Patient is alert and oriented x3. Moving all extremities spontaneously MUSCULOSKELETAL: Normal extremities with adequate strength and full range of motion. No lower extremity swelling or edema. No calf tenderness. PSYCHIATRIC: Withdrawn, depressed Limitations: no limitations Course Vital Signs 12/27/18 12/28/18 12/28/18 21:42 07:56 08:13 Temperature 97.9 F 97.9 F Pulse Rate 113 H 98 98 Respiratory 18 18 18 Rate Blood Pressure 157/93 141/71 141/71 O2 Sat by Pulse 97 97 97 Oximetry Medical Decision Making - Medical Decision Making Patient was seen and evaluated, history was obtained from law enforcement who brought the patient and, girlfriend who wrote the petition and patient. Upon arrival the patient was intoxicated Patient slept comfortably throughout the night. He was given Ativan for agitation The patient was reevaluated in the morning. He had minimal recall of the events tonight before. He denied being brought in by police. He admitted to having an alcohol problem and wanting help with alcohol abuse and wanting rehab. He denied any suicidal thoughts or intention. Denies any psychiatric history. Patient was evaluated by the emergency psychiatric services nurse who recommends outpatient follow-up and referred the patient to alcohol abuse therapy. - Lab Data Result diagrams: 12/27/18 22:41 12/27/18 22:41 Lab Results 12/27/18 12/27/18 12/28/18 Range/Units 22:41 22:41 02:23 WBC 7.7 (3.8-10.6) k/uL RBC 4.75 (4.30-5.90) m/uL Hgb 15.2 (13.0-17.5) gm/dL Hct 45.6 (39.0-53.0) % MCV 96.2 (80.0-100.0) fL MCH 32.1 (25.0-35.0) pg MCHC 33.4 (31.0-37.0) g/dL RDW 15.2 (11.5-15.5) % Plt Count 334 (150-450) k/uL Neutrophils % 49 % Lymphocytes % 38 % Monocytes % 6 % Eosinophils % 2 % Basophils % 1 % Neutrophils # 3.8 (1.3-7.7) k/uL Lymphocytes # 3.0 (1.0-4.8) k/uL Monocytes # 0.5 (0-1.0) k/uL Eosinophils # 0.1 (0-0.7) k/uL Basophils # 0.1 (0-0.2) k/uL Sodium 143 (137-145) mmol/L Potassium 4.0 (3.5-5.1) mmol/L Chloride 107 (98-107) mmol/L Carbon Dioxide 24 (22-30) mmol/L Anion Gap 12 mmol/L BUN 18 (9-20) mg/dL Creatinine 0.79 (0.66-1.25) mg/dL Est GFR (CKD-EPI)AfAm >90 (>60 ml/min/1.73 sqM) Est GFR (CKD-EPI)NonAf >90 (>60 ml/min/1.73 sqM) Glucose 91 (74-99) mg/dL Calcium 9.2 (8.4-10.2) mg/dL Urine Opiates Screen Not Detected (NotDetected) Ur Oxycodone Screen Not Detected (NotDetected) Urine Methadone Screen Not Detected (NotDetected) Ur Propoxyphene Screen Not Detected (NotDetected) Ur Barbiturates Screen Not Detected (NotDetected) U Tricyclic Antidepress Not Detected (NotDetected) Ur Phencyclidine Scrn Not Detected (NotDetected) Ur Amphetamines Screen Detected H (NotDetected) U Methamphetamines Scrn Not Detected (NotDetected) U Benzodiazepines Scrn Detected H (NotDetected) Urine Cocaine Screen Detected H (NotDetected) U Marijuana (THC) Screen Not Detected (NotDetected) Serum Alcohol 237 H* mg/dL Disposition Clinical Impression: Alcohol intoxication Disposition: HOME SELF-CARE Condition: Stable Instructions (If sedation given, give patient instructions): Alcohol Intoxication (ED), Abuse of Alcohol (ED) Is patient prescribed a controlled substance at d/c from ED?: No Referrals: None,Stated [Primary Care Provider] - 1-2 days
[2018-12-28 03:00] LABS: Amphetamine Screen,Urine Detected (NotDetected); Cocaine Screen,Urine Detected (NotDetected); Opiate Screen,Urine Not Detected (NotDetected); Phencyclidine Screen,Urine Not Detected (NotDetected)
[2018-12-28 03:01] LABS: Barbiturate Screen,Urine Not Detected (NotDetected); Benzodiazepines Screen,Urine Detected (NotDetected); Methadone Screen, Urine Not Detected (NotDetected); Oxycodone Screen, Urine Not Detected (NotDetected); Tricyclic Antidepressant,Urine Not Detected (NotDetected); Urn Cannabinoid Scrn Not Detected (NotDetected)
[2018-12-28 07:57] VITALS: BP 141/71; PULSE 98
== END 2018-12-28 08:13 | disposition home or self-care (01) ==
LOC: EC 21:31
DX: F10.129 Alcohol abuse with intoxication, unspecified (principal); F32.9 Major depressive disorder, single episode, unspecified; R45.1 Restlessness and agitation; F17.200 Nicotine dependence, unspecified, uncomplicated; Z90.49 Acquired absence of other specified parts of digestive tract; Z98.890 Other specified postprocedural states; Z91.018 Allergy to other foods; Y90.7 Blood alcohol level of 200-239 mg/100 ml
CPT/HCPCS: 82075; 36415; 80048; 85025; 80306; 80320; 99284; 96372 ×3; J2060; J1200; J1630

== ENCOUNTER 2020-02-29 07:19 | Emergency (ER) | payer OTHER ==
[2020-02-29 07:36] VITALS: TEMP 98
[2020-02-29] MEDS ORDERED: oxyCODONE-APAP 7.5-325MG 1 EACH TAB PO STA (07:45)
--- NOTE | 2020-02-29 07:45 | ED ---
General Adult HPI - General Chief complaint: Chest Pain Stated complaint: Chest Pain Time Seen by Provider: 02/29/20 07:21 Source: patient, EMS Mode of arrival: EMS Limitations: no limitations - History of Present Illness Initial comments: Dictation was produced using [employer] dictation software. please excuse any grammatical, word or spelling errors. This patient was cared for during a federal and state declared state of emergency secondary to Covid 19 Chief Complaint: 39-year-old male presents to the emergency department for chest pain History of Present Illness: Patient is a 39-year-old male who presents to the emergency department for chest pain. Patient states the pain is severe and unrelenting. He states that it's located to his right anterior chest wraps around to his back. 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 He went to reach for lights when he feels like he hyperextended. That's when his onset of symptoms again. Patient states that he also feels some numbness and paresthesias to his right upper extremity. He reports that his pain is worse with palpation and with abduction of the right upper extremity. Patient has any fever, chills or night sweats. At rest he feels his symptoms though not as bad as whenever he is moving. Denies any nausea or vomiting. Does report diaphoresis with his chest pain symptoms intermittently. Patient has past history of hypertension and alcohol abuse. Does not have any history of cardiac disease. Patient arrived via EMS. EMS performed EKG and provide him aspirin. The ROS documented in this emergency department record has been reviewed and confirmed by me. Those systems with pertinent positive or negative responses have been documented in the HPI. All other systems are other negative and/or noncontributory. PHYSICAL EXAM: General Impression: Alert and oriented x3, mild distress secondary to pain HEENT: Normocephalic atraumatic, extra-ocular movements intact, pupils equal and reactive to light bilaterally, mucous membranes moist. Cardiovascular: Heart regular rate and rhythm Chest: Able to complete full sentences, no retractions, no tachypnea Abdomen: abdomen soft, non-tender, non-distended, no organomegaly Musculoskeletal: Pulses present and equal in all extremities, no peripheral edema Motor: no focal deficits noted Neurological: CN II-XII grossly intact, no focal motor or sensory deficits noted Skin: Intact with no visualized rashes Psych: Normal affect and mood ED course: 39-year-old male presents with severe chest pain. Patient's pain is atypical with typical features. Patient's clinical presentation is very convincing for musculoskeletal chest pain however he does report that it's very severe and has been ongoing without any improvement for the last 4-5 days. Vital signs upon arrival are within acceptable limits. EKG is unchanged. Chart review shows that patient has been admitted for chest pain in the past. He had an exercise stress test performed in January 2018 showing normal stress echocardiogram. Patient given analgesia with improvement of symptoms. 10:11am - patient is resting comfortably. Laboratory evaluation obtained. Leukocytosis of 14.2 status secondary to stress leukocytosis. Coag panel is unremarkable. D-dimer 0.9. Metabolic panel is negative. At this point given patient's clinical presentation. He appears benign there is no concern for any life-threatening cardiopulmonary or vascular process causing his chest pain. Patient clear for discharge. EKG interpretation: Ventricular rate 63, normal sinus rhythm, LA interval 150, QRS 90, QTC 392. No LA prolongation, no QTC prolongation, no ST or T-wave changes noted. EKG compared to 01/05/2018 showing no changes. Overall, this EKG is unremarkable - Related Data Home Medications Medication Instructions Recorded Confirmed Ibuprofen [Motrin Ib] 200 mg PO Q4H PRN 02/29/20 02/29/20 Methyl Salicylate/Menthol 1 patch TOPICAL DAILY PRN 02/29/20 02/29/20 [Salonpas Patch] Previous Rx's Medication Instructions Recorded oxyCODONE HCL/ACETAMINOPHEN 1 tab PO Q6HR PRN 3 Days #12 tab 02/29/20 [Percocet 5-325 mg] Allergies Allergy/AdvReac Type Severity Reaction Status Date / Time monosodium glutamate [MSG] AdvReac Nausea Verified 02/29/20 09:55 Review of Systems ROS Statement: Those systems with pertinent positive or pertinent negative responses have been documented in the HPI. ROS Other: All systems not noted in ROS Statement are negative. Past Medical History Past Medical History: Hypertension Additional Past Medical History / Comment(s): migraines. 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 Past Anesthesia/Blood Transfusion Reactions: No Reported Reaction Past Psychological History: No Psychological Hx Reported Smoking Status: Current every day smoker Past Alcohol Use History: Abuse, Daily Past Drug Use History: Cocaine, Marijuana - Past Family History Father Family Medical History: Myocardial Infarction ([place]) Additional Family Medical History / Comment(s): Father of a [place] at the age of 61 yrs. Mother Family Medical History: Cancer Additional Family Medical History / Comment(s): Mother has stage IV lymphoma. General Exam Limitations: no limitations Course Vital Signs 02/29/20 02/29/20 02/29/20 07:25 08:24 09:54 Temperature 98.0 F 98.0 F Pulse Rate 69 65 63 Respiratory 18 16 14 Rate Blood Pressure 106/69 118/72 129/79 O2 Sat by Pulse 99 98 98 Oximetry Medical Decision Making - Lab Data Result diagrams: 02/29/20 07:44 02/29/20 07:44 Lab Results 02/29/20 02/29/20 02/29/20 Range/Units 07:44 07:44 07:44 WBC 14.2 H (3.8-10.6) k/uL RBC 4.79 (4.30-5.90) m/uL Hgb 15.3 (13.0-17.5) gm/dL Hct 45.3 (39.0-53.0) % MCV 94.5 (80.0-100.0) fL MCH 32.0 (25.0-35.0) pg MCHC 33.9 (31.0-37.0) g/dL RDW 12.3 (11.5-15.5) % Plt Count 353 (150-450) k/uL MPV 7.0 Neutrophils % 77 % Lymphocytes % 13 % Monocytes % 6 % Eosinophils % 2 % Basophils % 0 % Neutrophils # 10.9 H (1.3-7.7) k/uL Lymphocytes # 1.8 (1.0-4.8) k/uL Monocytes # 0.9 (0-1.0) k/uL Eosinophils # 0.3 (0-0.7) k/uL Basophils # 0.0 (0-0.2) k/uL PT (9.0-12.0) sec INR (<1.2) APTT (22.0-30.0) sec D-Dimer (<0.60) mg/L FEU Sodium 137 (137-145) mmol/L Potassium 4.3 (3.5-5.1) mmol/L Chloride 104 (98-107) mmol/L Carbon Dioxide 26 (22-30) mmol/L Anion Gap 7 mmol/L BUN 11 (9-20) mg/dL Creatinine 0.68 (0.66-1.25) mg/dL Est GFR (CKD-EPI)AfAm >90 (>60 ml/min/1.73 sqM) Est GFR (CKD-EPI)NonAf >90 (>60 ml/min/1.73 sqM) Glucose 97 (74-99) mg/dL Calcium 9.4 (8.4-10.2) mg/dL Total Bilirubin 0.9 (0.2-1.3) mg/dL AST 22 (17-59) U/L ALT 15 (4-49) U/L Alkaline Phosphatase 56 (38-126) U/L Troponin I <0.012 (0.000-0.034) ng/mL Total Protein 7.1 (6.3-8.2) g/dL Albumin 4.2 (3.5-5.0) g/dL Lipase 75 (23-300) U/L 02/29/20 Range/Units 09:38 WBC (3.8-10.6) k/uL RBC (4.30-5.90) m/uL Hgb (13.0-17.5) gm/dL Hct (39.0-53.0) % MCV (80.0-100.0) fL MCH (25.0-35.0) pg MCHC (31.0-37.0) g/dL RDW (11.5-15.5) % Plt Count (150-450) k/uL MPV Neutrophils % % Lymphocytes % % Monocytes % % Eosinophils % % Basophils % % Neutrophils # (1.3-7.7) k/uL Lymphocytes # (1.0-4.8) k/uL Monocytes # (0-1.0) k/uL Eosinophils # (0-0.7) k/uL Basophils # (0-0.2) k/uL PT 9.6 (9.0-12.0) sec INR 0.9 (<1.2) APTT 22.9 (22.0-30.0) sec D-Dimer 0.29 (<0.60) mg/L FEU Sodium (137-145) mmol/L Potassium (3.5-5.1) mmol/L Chloride (98-107) mmol/L Carbon Dioxide (22-30) mmol/L Anion Gap mmol/L BUN (9-20) mg/dL Creatinine (0.66-1.25) mg/dL Est GFR (CKD-EPI)AfAm (>60 ml/min/1.73 sqM) Est GFR (CKD-EPI)NonAf (>60 ml/min/1.73 sqM) Glucose (74-99) mg/dL Calcium (8.4-10.2) mg/dL Total Bilirubin (0.2-1.3) mg/dL AST (17-59) U/L ALT (4-49) U/L Alkaline Phosphatase (38-126) U/L Troponin I (0.000-0.034) ng/mL Total Protein (6.3-8.2) g/dL Albumin (3.5-5.0) g/dL Lipase (23-300) U/L Disposition Clinical Impression: Chest wall muscle strain Disposition: HOME SELF-CARE Condition: Fair Instructions (If sedation given, give patient instructions): Chest Pain (ED) Prescriptions: oxyCODONE HCL/ACETAMINOPHEN [Percocet 5-325 mg] 1 tab PO Q6HR PRN 3 Days #12 tab PRN Reason: Pain Is patient prescribed a controlled substance at d/c from ED?: Yes If prescribed controlled substance>3 days was MAPS reviewed?: Prescribed <3 Days Referrals: David Juárez MD [STAFF PHYSICIAN] - 1-2 days Time of Disposition: 10:15
[2020-02-29 08:07] LABS: Basophils % (A) 0 %; Eosinophils # (A) 0.3 k/uL (0-0.7); Eosinophils % (A) 2 %; HCT 45.3 % (39.0-53.0); HGB 15.3 gm/dL (13.0-17.5); Lymphocytes # (A) 1.8 k/uL (1.0-4.8); Lymphocytes % (A) 13 %; MCHC 33.9 g/dL (31.0-37.0); MCV 94.5 fL (80.0-100.0); Monocytes # (A) 0.9 k/uL (0-1.0); Monocytes % (A) 6 %; Neutrophils # (A) 10.9 k/uL (1.3-7.7); Neutrophils % (A) 77 %; Platelet Count 353 k/uL (150-450); RBC 4.79 m/uL (4.30-5.90); RDW 12.3 % (11.5-15.5); WBC 14.2 k/uL (3.8-10.6)
[2020-02-29 08:19] LABS: ALT 15 U/L (4-49); AST 22 U/L (17-59); African American GFR (CKD) >90 (>60 ml/min/1.73 sqM); Albumin 4.2 g/dL (3.5-5.0); Alkaline Phosphatase 56 U/L (38-126); Anion Gap 7 mmol/L; Blood Urea Nitrogen 11 mg/dL (9-20); Calcium 9.4 mg/dL (8.4-10.2); Carbon Dioxide 26 mmol/L (22-30); Chloride 104 mmol/L (98-107); Glucose 97 mg/dL (74-99); Lipase 75 U/L (23-300); Non-African American GFR(CKD) >90 (>60 ml/min/1.73 sqM); Potassium 4.3 mmol/L (3.5-5.1); Sodium 137 mmol/L (137-145); Total Bilirubin 0.9 mg/dL (0.2-1.3); Total Protein 7.1 g/dL (6.3-8.2)
--- NOTE | 2020-02-29 08:32 | XR ---
EXAMINATION TYPE: XR chest 2V DATE OF EXAM: 02/29/2020 COMPARISON: 08/21/2018 HISTORY: Chest pain TECHNIQUE: Frontal and lateral views of the chest are obtained. FINDINGS: There is no focal air space opacity. No evidence for pneumothorax. No pleural effusion. The cardiac silhouette size is within normal limits. The osseous structures are grossly intact. IMPRESSION: 1. No acute cardiopulmonary process.
[2020-02-29] MEDS ORDERED: MORPHINE SULFATE 4 MG/ML SYRINGE IV STA (08:51)
[2020-02-29 10:05] LABS: D-Dimer 0.29 mg/L FEU (<0.60); INR 0.9 (<1.2); Partial Thromboplastin Time 22.9 sec (22.0-30.0); Prothrombin Time 9.6 sec (9.0-12.0)
[2020-02-29 10:44] VITALS: BP 125/70; PULSE 71; RESP 16
== END 2020-02-29 10:38 | disposition home or self-care (01) ==
LOC: EC 07:19
DX: S29.011A Strain of muscle and tendon of front wall of thorax, initial encounter (principal); D72.829 Elevated white blood cell count, unspecified; F17.200 Nicotine dependence, unspecified, uncomplicated; Z91.02 Food additives allergy status; X50.1XXA Overexertion from prolonged static or awkward postures, initial encounter
CPT/HCPCS: 36415; 93005; 85379; 80053; 83690; 84484; 85025; 85610; 85730; 71046; 99285; 96374; J2270

== ENCOUNTER 2021-08-03 14:29 | Emergency (ER) | payer OTHER ==
[2021-08-03 14:38] VITALS: PULSE 110; RESP 18; TEMP 98
[2021-08-03 14:40] VITALS: BP 132/96
[2021-08-03 15:11] LABS: Basophils # (A) 0.1 k/uL (0-0.2); Basophils % (A) 0 %; Eosinophils # (A) 0.1 k/uL (0-0.7); Eosinophils % (A) 1 %; HCT 45.2 % (39.0-53.0); HGB 14.8 gm/dL (13.0-17.5); Lymphocytes # (A) 2.5 k/uL (1.0-4.8); Lymphocytes % (A) 23 %; MCH 29.8 pg (25.0-35.0); MCHC 32.6 g/dL (31.0-37.0); MCV 91.3 fL (80.0-100.0); Mean Platelet Volume 7.3; Monocytes # (A) 0.8 k/uL (0-1.0); Monocytes % (A) 7 %; Neutrophils # (A) 7.2 k/uL (1.3-7.7); Neutrophils % (A) 66 %; Platelet Count 380 k/uL (150-450); RBC 4.95 m/uL (4.30-5.90); RDW 12.8 % (11.5-15.5); WBC 10.9 k/uL (3.8-10.6)
[2021-08-03 15:30] LABS: ALT 40 U/L (4-49); AST 40 U/L (17-59); African American GFR (CKD) >90 (>60 ml/min/1.73 sqM); Albumin 4.7 g/dL (3.5-5.0); Alkaline Phosphatase 73 U/L (38-126); Anion Gap 8 mmol/L; Blood Urea Nitrogen 17 mg/dL (9-20); Calcium 9.7 mg/dL (8.4-10.2); Carbon Dioxide 24 mmol/L (22-30); Chloride 107 mmol/L (98-107); Glucose 110 mg/dL (74-99); Magnesium 2.2 mg/dL (1.6-2.3); Non-African American GFR(CKD) >90 (>60 ml/min/1.73 sqM); Potassium 4.2 mmol/L (3.5-5.1); Sodium 139 mmol/L (137-145); Total Bilirubin 0.8 mg/dL (0.2-1.3)
--- NOTE | 2021-08-03 16:00 | ED ---
Back Pain HPI - General Chief Complaint: Back Pain/Injury Stated Complaint: chest pain Time Seen by Provider: 08/03/21 15:09 Source: patient, RN notes reviewed Limitations: no limitations - History of Present Illness Initial Comments: 39-year-old male brought in by police after complaining of palpitations and exacerbation of his chronic low back pain. He also states he's had a hip surgery at in the past on the right and complains right hip pain. He states that recently he's been having more palpitations he does admit to drinking occasional alcohol using some street drugs. No plates of fevers chills nausea vomiting sweats or other symptoms a loss of function to his upper or lower extremities. MD Complaint: back pain - Related Data Home Medications Medication Instructions Recorded Confirmed Ibuprofen [Motrin Ib] 200 mg PO Q4H PRN 02/29/20 02/29/20 Methyl Salicylate/Menthol 1 patch TOPICAL DAILY PRN 02/29/20 02/29/20 [Salonpas Patch] Previous Rx's Medication Instructions Recorded oxyCODONE HCL/ACETAMINOPHEN 1 tab PO Q6HR PRN 3 Days #12 tab 02/29/20 [Percocet 5-325 mg] Allergies Allergy/AdvReac Type Severity Reaction Status Date / Time monosodium glutamate [MSG] AdvReac Nausea Verified 08/03/21 14:37 Review of Systems ROS Statement: Those systems with pertinent positive or pertinent negative responses have been documented in the HPI. ROS Other: All systems not noted in ROS Statement are negative. Past Medical History Past Medical History: Hypertension Additional Past Medical History / Comment(s): migraines. 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 Past Anesthesia/Blood Transfusion Reactions: No Reported Reaction Past Psychological History: No Psychological Hx Reported Smoking Status: Current every day smoker Past Alcohol Use History: Abuse, Daily Past Drug Use History: Cocaine, Marijuana - Past Family History Father Family Medical History: Myocardial Infarction ([place]) Additional Family Medical History / Comment(s): Father of a [place] at the age of 61 yrs. Mother Family Medical History: Cancer Additional Family Medical History / Comment(s): Mother has stage IV lymphoma. General Exam - General Exam Comments Initial Comments: This is a well-developed well-nourished awake alert oriented 3 male Limitations: no limitations General appearance: alert, anxious Head exam: Present: atraumatic, normocephalic, normal inspection Eye exam: Present: normal appearance, PERRL, EOMI. Absent: scleral icterus, conjunctival injection, periorbital swelling ENT exam: Present: normal exam, mucous membranes moist Neck exam: Present: normal inspection, full ROM, other (No stridor JVD or bruits). Absent: tenderness, meningismus, lymphadenopathy Respiratory exam: Present: normal lung sounds bilaterally. Absent: respiratory distress, wheezes, rales, rhonchi, stridor Cardiovascular Exam: Present: regular rate, normal rhythm, normal heart sounds. Absent: systolic murmur, diastolic murmur, rubs, gallop, clicks GI/Abdominal exam: Present: soft, normal bowel sounds. Absent: distended, tenderness, guarding, rebound, rigid Extremities exam: Present: normal inspection, full ROM, normal capillary refill. Absent: tenderness, pedal edema, joint swelling, calf tenderness Back exam: Present: normal inspection, full ROM, tenderness (Some mild paraspinous tenderness over the lumbar spine lower region no spinous process tenderness no step-off no crepitation no tenderness over the posterior pelvis or anterior superior iliac spines.) Neurological exam: Present: alert, oriented X3, CN II-XII intact Psychiatric exam: Present: normal affect, normal mood Skin exam: Present: warm, dry, intact, normal color. Absent: rash Course Vital Signs 08/03/21 14:34 Temperature 98 F Pulse Rate 110 H Respiratory 18 Rate Blood Pressure 132/96 O2 Sat by Pulse 98 Oximetry Medical Decision Making - Medical Decision Making Imaging reviewed no acute findings lab work all within normal limits patient will be discharged - Lab Data Result diagrams: 08/03/21 14:59 08/03/21 14:59 Lab Results 08/03/21 08/03/21 08/03/21 Range/Units 14:59 14:59 14:59 WBC 10.9 H (3.8-10.6) k/uL RBC 4.95 (4.30-5.90) m/uL Hgb 14.8 (13.0-17.5) gm/dL Hct 45.2 (39.0-53.0) % MCV 91.3 (80.0-100.0) fL MCH 29.8 (25.0-35.0) pg MCHC 32.6 (31.0-37.0) g/dL RDW 12.8 (11.5-15.5) % Plt Count 380 (150-450) k/uL MPV 7.3 Neutrophils % 66 % Lymphocytes % 23 % Monocytes % 7 % Eosinophils % 1 % Basophils % 0 % Neutrophils # 7.2 (1.3-7.7) k/uL Lymphocytes # 2.5 (1.0-4.8) k/uL Monocytes # 0.8 (0-1.0) k/uL Eosinophils # 0.1 (0-0.7) k/uL Basophils # 0.1 (0-0.2) k/uL Sodium 139 (137-145) mmol/L Potassium 4.2 (3.5-5.1) mmol/L Chloride 107 (98-107) mmol/L Carbon Dioxide 24 (22-30) mmol/L Anion Gap 8 mmol/L BUN 17 (9-20) mg/dL Creatinine 0.85 (0.66-1.25) mg/dL Est GFR (CKD-EPI)AfAm >90 (>60 ml/min/1.73 sqM) Est GFR (CKD-EPI)NonAf >90 (>60 ml/min/1.73 sqM) Glucose 110 H (74-99) mg/dL Calcium 9.7 (8.4-10.2) mg/dL Magnesium 2.2 (1.6-2.3) mg/dL Total Bilirubin 0.8 (0.2-1.3) mg/dL AST 40 (17-59) U/L ALT 40 (4-49) U/L Alkaline Phosphatase 73 (38-126) U/L Troponin I <0.012 (0.000-0.034) ng/mL Total Protein 8.0 (6.3-8.2) g/dL Albumin 4.7 (3.5-5.0) g/dL - Radiology Data Radiology results: report reviewed (Imaging reviewed no acute findings some evidence of degenerative joint disease.), image reviewed Disposition Clinical Impression: Palpitations, Chronic back pain Disposition: HOME SELF-CARE Condition: Good Instructions (If sedation given, give patient instructions): Heart Palpitations (ED), Lower Back Exercises (ED), Chronic Back Pain (DC) Is patient prescribed a controlled substance at d/c from ED?: No Referrals: None,Stated [Primary Care Provider] - 1-2 days Decision Date: 08/03/21 Decision Time: 17:41
--- NOTE | 2021-08-03 16:32 | XR ---
EXAMINATION TYPE: XR chest 1V portable DATE OF EXAM: 08/03/2021 COMPARISON: 02/29/2020 HISTORY: Chest pain TECHNIQUE: Single frontal view of the chest is obtained. FINDINGS: There is no focal air space opacity, pleural effusion, or pneumothorax seen. The cardiac silhouette size is within normal limits. The osseous structures are intact. IMPRESSION: No acute process.
--- NOTE | 2021-08-03 16:35 | XR ---
Lumbar spine. HISTORY: Chronic back pain COMPARISON: 05/31/2018. TECHNIQUE: 3 views lumbar spine were obtained FINDINGS: The lumbar vertebral segments are normal in height and alignment and there is no fracture or subluxat ion. There is mild degenerative disc disease at the L4-5 level where there is mild disc space narrowing an d mild spondylosis. There has been mild interval progression compared to the prior study. The facet j oints are intact. IMPRESSION: 1. No lumbar spine fracture or malalignment. 2. Interval development of mild degenerative disease at the L4-5 level.
--- NOTE | 2021-08-03 16:37 | XR ---
EXAMINATION TYPE: XR Hip RT and AP Pelvis DATE OF EXAM: 08/03/2021 COMPARISON: None HISTORY: Right hip pain TECHNIQUE: A single AP view of the pelvis is obtained. Two views of the right hip are obtained. FINDINGS: There is no acute fracture/dislocation evident in the pelvis. The hip and sacroiliac join ts appear symmetric and unremarkable. The overlying soft tissue appears unremarkable. Two views of right hip show no acute fracture or dislocation. No focal lytic or sclerotic lesion see n in the proximal right femur. The overlying soft tissue is unremarkable. IMPRESSION: There is no acute fracture or dislocation in the pelvis or right hip.
== END 2021-08-03 17:55 | disposition home or self-care (01) ==
LOC: EC 14:29
DX: R00.2 Palpitations (principal); M51.36 Other intervertebral disc degeneration, lumbar region; G89.29 Other chronic pain; I10 Essential (primary) hypertension; F17.200 Nicotine dependence, unspecified, uncomplicated; F12.90 Cannabis use, unspecified, uncomplicated; Z90.49 Acquired absence of other specified parts of digestive tract
CPT/HCPCS: 36415; 71045; 72100; 73502; 80053; 83735; 84484; 85025; 99285

== ENCOUNTER 2021-10-23 14:05 | Observation (INO) | payer OTHER ==
[2021-10-23] MEDS ORDERED: SODIUM CHLORIDE 0.9% 1,000 ML IV STA (14:43)
[2021-10-23] MEDS ORDERED: levETIRAcetam IV 1,000 MG in SALINE 1 100ML.BAG IVPB STA (14:45)
--- NOTE | 2021-10-23 14:46 | ED ---
General Adult HPI - General Chief complaint: Neuro Symptoms/Deficit Stated complaint: Possible Seizures Time Seen by Provider: 10/23/21 14:19 Source: patient, RN notes reviewed Mode of arrival: wheelchair Limitations: no limitations - History of Present Illness Initial comments: Patient is a pleasant 41-year-old male presenting to the emergency department question seizure activity. Patient had an episode around a month ago and another one today. Patient became unresponsive. Patient was confused for about 25 minutes following this. Patient had witnessed odd movements. Patient did land on his right shoulder today and complains of right shoulder discomfort, increasing of movement. Patient denies head injury or loss of consciousness. Patient has had some minimal confusion over the past month or so and several episodes were he was worried symptoms may occur however they did not. Patient does have a history of heavy alcohol use however last was 8 months ago. - Related Data Home Medications Medication Instructions Recorded Confirmed No Known Home Medications 10/23/21 10/23/21 Allergies Allergy/AdvReac Type Severity Reaction Status Date / Time Iodinated Contrast Media Allergy Unknown Verified 10/23/21 16:01 Childhood monosodium glutamate [MSG] AdvReac Nausea Verified 10/23/21 16:01 Review of Systems ROS Statement: Those systems with pertinent positive or pertinent negative responses have been documented in the HPI. ROS Other: All systems not noted in ROS Statement are negative. Constitutional: Denies: fever Eyes: Denies: eye pain ENT: Denies: ear pain Respiratory: Denies: cough, dyspnea Cardiovascular: Denies: chest pain Endocrine: Denies: fatigue Gastrointestinal: Denies: abdominal pain Genitourinary: Denies: dysuria Musculoskeletal: Denies: back pain Skin: Denies: rash Neurological: Reports: as per HPI Past Medical History Past Medical History: Hypertension Additional Past Medical History / Comment(s): migraines. 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 Past Anesthesia/Blood Transfusion Reactions: No Reported Reaction Past Psychological History: Anxiety, Depression Smoking Status: Current every day smoker Past Alcohol Use History: Occasional Past Drug Use History: None Reported - Past Family History Father Family Medical History: Myocardial Infarction ([place]) Additional Family Medical History / Comment(s): Father of a [place] at the age of 61 yrs. Mother Family Medical History: Cancer Additional Family Medical History / Comment(s): Mother has stage IV lymphoma. General Exam Limitations: no limitations General appearance: alert, in no apparent distress Head exam: Present: atraumatic, normocephalic Eye exam: Present: normal appearance, PERRL, EOMI ENT exam: Present: normal oropharynx Neck exam: Present: normal inspection. Absent: tenderness Respiratory exam: Present: normal lung sounds bilaterally Cardiovascular Exam: Present: regular rate, normal rhythm Expanded Peripheral pulses: 2+: Radial (R) GI/Abdominal exam: Present: soft. Absent: distended, tenderness Extremities exam: Present: tenderness (Moderate tenderness near the right humeral head. Distally neurovascularly intact. Decreased range of motion at right shoulder secondary to patient pain.) Back exam: Present: normal inspection Neurological exam: Present: alert, oriented X3, CN II-XII intact. Absent: motor sensory deficit Psychiatric exam: Present: normal affect, normal mood Skin exam: Present: normal color Course Vital Signs 10/23/21 10/23/21 14:09 16:40 Temperature 98.5 F Pulse Rate 103 H 84 Respiratory 18 18 Rate Blood Pressure 152/79 124/69 O2 Sat by Pulse 96 96 Oximetry EKG Findings - EKG Comments: EKG Findings:: Sinus rhythm rate 93. MD 136. QRS 100. QT 344. QTC 395. No rmal axis. Normal QRS. No acute ST change. Medical Decision Making - Medical Decision Making Patient reevaluated and updated. Case was discussed with Dr. Clement, who will admit There is concern for seizure activity, probably two, possibly more over the past several weeks. Patient will be held for neurology evaluation. Patient denies methamphetamine use and states he was in contact with this at work. - Lab Data Result diagrams: 10/23/21 14:36 10/23/21 14:36 Lab Results 10/23/21 10/23/21 10/23/21 Range/Units 14:36 14:36 15:06 WBC 7.3 (3.8-10.6) k/uL RBC 4.62 (4.30-5.90) m/uL Hgb 13.9 (13.0-17.5) gm/dL Hct 42.9 (39.0-53.0) % MCV 92.7 (80.0-100.0) fL MCH 30.1 (25.0-35.0) pg MCHC 32.4 (31.0-37.0) g/dL RDW 13.3 (11.5-15.5) % Plt Count 359 (150-450) k/uL MPV 7.6 Neutrophils % 59 % Lymphocytes % 31 % Monocytes % 5 % Eosinophils % 2 % Basophils % 1 % Neutrophils # 4.3 (1.3-7.7) k/uL Lymphocytes # 2.2 (1.0-4.8) k/uL Monocytes # 0.4 (0-1.0) k/uL Eosinophils # 0.1 (0-0.7) k/uL Basophils # 0.1 (0-0.2) k/uL Sodium 140 (137-145) mmol/L Potassium 4.5 (3.5-5.1) mmol/L Chloride 109 H (98-107) mmol/L Carbon Dioxide 21 L (22-30) mmol/L Anion Gap 10 mmol/L BUN 15 (9-20) mg/dL Creatinine 0.73 (0.66-1.25) mg/dL Est GFR (CKD-EPI)AfAm >90 (>60 ml/min/1.73 sqM) Est GFR (CKD-EPI)NonAf >90 (>60 ml/min/1.73 sqM) Glucose 135 H (74-99) mg/dL Calcium 9.4 (8.4-10.2) mg/dL Magnesium 2.0 (1.6-2.3) mg/dL Total Bilirubin 0.2 (0.2-1.3) mg/dL AST 23 (17-59) U/L ALT 21 (4-49) U/L Alkaline Phosphatase 67 (38-126) U/L Total Protein 7.4 (6.3-8.2) g/dL Albumin 4.7 (3.5-5.0) g/dL Urine Color Light Yellow Urine Appearance Clear (Clear) Urine pH 5.5 (5.0-8.0) Ur Specific [place] 1.019 (1.001-1.035) Urine Protein Negative (Negative) Urine Glucose (UA) Negative (Negative) Urine Ketones Negative (Negative) Urine Blood Negative (Negative) Urine Nitrite Negative (Negative) Urine Bilirubin Negative (Negative) Urine Urobilinogen <2.0 (<2.0) mg/dL Ur Leukocyte Esterase Negative (Negative) Urine Opiates Screen Not Detected (NotDetected) Ur Oxycodone Screen Not Detected (NotDetected) Urine Methadone Screen Not Detected (NotDetected) Ur Propoxyphene Screen Not Detected (NotDetected) Ur Barbiturates Screen Not Detected (NotDetected) U Tricyclic Antidepress Not Detected (NotDetected) Ur Phencyclidine Scrn Not Detected (NotDetected) Ur Amphetamines Screen Not Detected (NotDetected) U Methamphetamines Scrn Detected H (NotDetected) U Benzodiazepines Scrn Not Detected (NotDetected) Urine Cocaine Screen Not Detected (NotDetected) U Marijuana (THC) Screen Not Detected (NotDetected) Serum Alcohol <10 mg/dL - Radiology Data Radiology results: image reviewed (Right shoulder x-ray shows osteoarthritic changes. Cannot completely exclude fracture. Third rib fracture of indeterminate age.) Disposition Clinical Impression: Seizure Disposition: ADMITTED IP TO THIS HOSP Is patient prescribed a controlled substance at d/c from ED?: No Referrals: None,Stated [Primary Care Provider] - 1-2 days Time of Disposition: 17:19
[2021-10-23 15:03] LABS: Basophils # (A) 0.1 k/uL (0-0.2); Basophils % (A) 1 %; Eosinophils # (A) 0.1 k/uL (0-0.7); Eosinophils % (A) 2 %; HCT 42.9 % (39.0-53.0); HGB 13.9 gm/dL (13.0-17.5); Lymphocytes # (A) 2.2 k/uL (1.0-4.8); Lymphocytes % (A) 31 %; MCH 30.1 pg (25.0-35.0); MCHC 32.4 g/dL (31.0-37.0); MCV 92.7 fL (80.0-100.0); Mean Platelet Volume 7.6; Monocytes # (A) 0.4 k/uL (0-1.0); Monocytes % (A) 5 %; Neutrophils # (A) 4.3 k/uL (1.3-7.7); Neutrophils % (A) 59 %; Platelet Count 359 k/uL (150-450); RBC 4.62 m/uL (4.30-5.90); RDW 13.3 % (11.5-15.5); WBC 7.3 k/uL (3.8-10.6)
[2021-10-23 15:19] LABS: Appearance,Urine Clear (Clear); Bilirubin,Urine Negative (Negative); Blood,Urine Negative (Negative); Color,Urine Light Yellow; Glucose,Urine (UA) Negative (Negative); Ketones,Urine Negative (Negative); Leukocyte Esterase,Urine Negative (Negative); Nitrite,Urine Negative (Negative); PH, Urine 5.5 (5.0-8.0); Protein,Urine Negative (Negative); Specific Gravity,Urine 1.019 (1.001-1.035); Urobilinogen,Urine <2.0 mg/dL (<2.0)
--- NOTE | 2021-10-23 15:21 | CT ---
EXAMINATION TYPE: CT brain wo con CT DLP: 1115.4 mGycm, Automated exposure control for dose reduction was used. DATE OF EXAM: 10/23/2021 3:15 PM COMPARISON: CT brain 04/14/2016 CLINICAL INDICATION:Male, 41 years old with history of seizure activity, Dizziness, possible seizure. TECHNIQUE: Brain: Multiple axial CT images of the brain were obtained without IV contrast. FINDINGS: Brain: Extra-axial spaces: No abnormal extra-axial fluid collections. Ventricular system: Within normal limits Cerebral parenchyma: No acute intraparenchymal hemorrhage or mass effect. The nathan-white junction is well differentiated. Cerebellum: Unremarkable. Mass effect: No evidence of midline shift. Intracranial vasculature: unremarkable Soft tissues: Normal. Calvarium/osseous structures: No depressed skull fracture. Paranasal sinuses and mastoid air cells: Mild scattered paranasal sinus disease. Visualized orbits: Orbital contents are intact. IMPRESSION: No acute intracranial process.
[2021-10-23 15:29] LABS: Amphetamine Screen,Urine Not Detected (NotDetected); Barbiturate Screen,Urine Not Detected (NotDetected); Benzodiazepines Screen,Urine Not Detected (NotDetected); Cocaine Screen,Urine Not Detected (NotDetected); Methadone Screen, Urine Not Detected (NotDetected); Opiate Screen,Urine Not Detected (NotDetected); Oxycodone Screen, Urine Not Detected (NotDetected); Phencyclidine Screen,Urine Not Detected (NotDetected); Tricyclic Antidepressant,Urine Not Detected (NotDetected); Urn Cannabinoid Scrn Not Detected (NotDetected)
[2021-10-23 15:31] LABS: ALT 21 U/L (4-49); AST 23 U/L (17-59); African American GFR (CKD) >90 (>60 ml/min/1.73 sqM); Albumin 4.7 g/dL (3.5-5.0); Alcohol <10 mg/dL; Alkaline Phosphatase 67 U/L (38-126); Anion Gap 10 mmol/L; Blood Urea Nitrogen 15 mg/dL (9-20); Calcium 9.4 mg/dL (8.4-10.2); Carbon Dioxide 21 mmol/L (22-30); Chloride 109 mmol/L (98-107); Glucose 135 mg/dL (74-99); Non-African American GFR(CKD) >90 (>60 ml/min/1.73 sqM); Potassium 4.5 mmol/L (3.5-5.1); Sodium 140 mmol/L (137-145); Total Bilirubin 0.2 mg/dL (0.2-1.3); Total Protein 7.4 g/dL (6.3-8.2)
--- NOTE | 2021-10-23 15:37 | XR ---
Right shoulder HISTORY: Trauma and pain 3 views the right shoulder, correlation to chest x-ray 08/03/2021 There is a distal acromial spur. Acromioclavicular joint shows arthropathy. Marked arthropathy is pre sent at the glenohumeral joint, is marginal spurring, subchondral sclerosis and possible cyst formati on with marginal spurring. 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 Third rib shows cortical regularity possibly present on prior chest x-ray IMPRESSION: Osteoarthritic changes are favored, difficult to exclude fracture. There is a third rib f racture of indeterminate age but may be running.
[2021-10-23] MEDS ORDERED: MORPHINE SULFATE 4 MG/ML SYRINGE IVP STA (15:49)
[2021-10-23] MEDS ORDERED: CALCIUM CARBONATE 500 MG CHEWABLE PO STA (16:18)
[2021-10-23] MEDS ORDERED: KETOROLAC 15 MG/ML 1 ML VIAL IVP STA (17:16)
[2021-10-23] MEDS ORDERED: FAMOTIDINE 20 MG/2 ML VIAL IV STA (17:16)
[2021-10-23] MEDS ORDERED: NALOXONE 0.4 MG/ML 1 ML VIAL IV PRN (17:19)
[2021-10-23] MEDS ORDERED: ORPHENADRINE 30 MG/ML 2 ML VIAL IM STA (17:29)
[2021-10-23] MEDS: SODIUM CHLORIDE 0.9% 1,000 ML IV SCH (17:44)
[2021-10-23] MEDS ORDERED: MAG HYDROX/AL HYDROX/SIMETH 30 ML, HYOSCYAMINE ELIXIR 10 ML, LIDOCAINE VISCOUS 2% 10 ML PO ONE ×3 (19:00)
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
[2021-10-23] MEDS: HYDROcodone/APAP 5-325MG 1 EACH TAB PO PRN (19:40)
[2021-10-23] MEDS: KETOROLAC 15 MG/ML 1 ML VIAL IVP SCH (23:25)
[2021-10-23] MEDS: HEPARIN SODIUM,PORCINE/PF 5,000 UNIT/0.5 ML SYRINGE SQ SCH (23:54)
[2021-10-24] MEDS: HYDROcodone/APAP 5-325MG 1 EACH TAB PO PRN (01:31)
[2021-10-24] MEDS ORDERED: NICOTINE 7MG/24HR PATCH TRANSDERM ONE (02:00)
[2021-10-24] MEDS: MORPHINE SULFATE 2 MG/ML SYRINGE IVP PRN ×2 (02:32→09:33)
[2021-10-24] MEDS: KETOROLAC 15 MG/ML 1 ML VIAL IVP SCH ×2 (06:04→12:54)
[2021-10-24] MEDS: SODIUM CHLORIDE 0.9% 1,000 ML IV SCH (06:05)
[2021-10-24 08:04] VITALS: RESP 16
[2021-10-24] MEDS: HEPARIN SODIUM,PORCINE/PF 5,000 UNIT/0.5 ML SYRINGE SQ SCH ×2 (09:03→15:12)
--- NOTE | 2021-10-24 09:32 | P.CNNES ---
History of Present Illness Consult date: 10/24/21 Requesting physician: Juan Carlos Hay Reason for Consult: probable new onset seizure History of Present Illness: This is a 5-year-old gentleman who presented emergency department with questionable seizure-like activity. Patient stated that yesterday he was on the floor and the was notified by friends that his body was stiff as if in a tonic is states and he woke up confused. The episode would last 34 minutes and total. He denies any urinary or bowel incontinence with this episode or any tongue bite. He stated he had a similar episode in September 14, 2021 and again he was found on the floor with body stiffness and during the episode he had urinary incontinence. Per the past 1 week he's been having a bad taste in his mouth been feeling confused. He denies any prior history of seizures. He does have family history of seizures and his mother and his sister. Patient is not aware of his history. He stated that he has not been drinking alcohol for at least 8 months prior to that he was drinking heavily. In the past he used to use cocaine but he denies using any positive since use for the last 1 year. 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 Some of the workup during this hospital visit consisted of: CBC with differential is unremarkable Serum glucose is 135. 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 Urine drug screen is positive for methamphetamine. The serum alcohol was less than 10. CT of the head is reported as no acute intracranial process. I personally reviewed the CT of the head and I agree with the report. As a result in the ED patient was given Keppra 1 g and was started on the Keppra 750 every 12 hours for probable seizures by the ED team. Review of Systems Review of system: The 12 point system was reviewed and apparent positive and negative per HPI. Past Medical History Past Medical History: Hypertension Additional Past Medical History / Comment(s): migraines. 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 Past Anesthesia/Blood Transfusion Reactions: No Reported Reaction Past Psychological History: Anxiety, Depression Smoking Status: Current every day smoker Past Alcohol Use History: Occasional Past Drug Use History: None Reported - Past Family History Father Family Medical History: Myocardial Infarction (OK) Additional Family Medical History / Comment(s): Father of a OK at the age of 61 yrs. Mother Family Medical History: Cancer Additional Family Medical History / Comment(s): Mother has stage IV lymphoma. Medications and Allergies Home Medications Medication Instructions Recorded Confirmed Type Ibuprofen [Motrin] 800 mg PO Q8H PRN #30 tab 10/24/21 Rx levETIRAcetam [Keppra] 500 mg PO Q12HR 30 Days #60 tab 10/24/21 Rx Allergies Allergy/AdvReac Type Severity Reaction Status Date / Time Iodinated Contrast Media Allergy Unknown Verified 10/23/21 16:01 Childhood monosodium glutamate [MSG] AdvReac Nausea Verified 10/23/21 16:01 Physical Examination - Vital Signs Vital Signs: Vital Signs Temp Pulse Pulse Resp BP BP Pulse Ox 10/24/21 07:00 98 F 59 L 16 115/68 96 10/24/21 02:49 97.3 F L 62 18 120/64 98 10/23/21 19:47 94 18 144/87 96 10/23/21 19:40 97.2 F L 80 18 134/73 94 L 10/23/21 18:16 98.6 F 89 20 152/84 97 10/23/21 16:40 84 18 124/69 96 10/23/21 14:09 98.5 F 103 H 18 152/79 96 Intake and Output 10/23/21 10/24/21 10/24/21 22:59 06:59 14:59 Other: # Voids 1 1 Weight 90.718 kg GENERAL: The patient is lying in bed and is not in acute distress. CHEST: The heart rate is regular rate rhythm. No murmurs to auscultation. LUNG: Clear to auscultation bilaterally no wheezing noted throughout. Not labored breathing. ABDOMEN/GI: Bowel sounds present in all 4 quadrants. No tenderness to palpation throughout. NEUROLOGICAL: Higher mental function: The patient is awake, alert, oriented to self, place and time. Patient is following commands. No aphasia and no neglect. Cranial nerves: The pupils are round, equal and reactive to light and accommodation. Visual mcnulty are full to confrontation throughout. Extraocular movement is intact no nystagmus is noted. Facial sensation is normal to touch throughout. The facial strength is normal throughout. Hearing is normal bilaterally to hand rub. Tongue is midline and moved [id number] without any difficulty. No dysarthria is noted. Shoulder shrug is normal bilaterally. Motor: The strength is 5 over 5 throughout. Normal tone and bulk. Cerebellum: Normal finger to nose heel to mercado bilaterally. Sensation: Sensation is normal to touch throughout. Reflexes (right/left): 2+ throughout. Plantars are downgoing bilaterally. Results - Laboratory Findings CBC and BMP: 10/24/21 04:22 10/24/21 04:22 Abnormal Lab Findings: Abnormal Labs 10/23/21 10/23/21 14:36 15:06 Chloride 109 H Carbon Dioxide 21 L Glucose 135 H U Methamphetamines Scrn Detected H Assessment and Plan Assessment: New onset probable Seizure clinically (patient reported he had two episodes of being found on floor, body stiffening, one episode of urinary incontinence, metalic taste mouth). Right shoulder pain with third rib fracture Urine drug screen is positive for methamphetamine use but he denies of drug use recently Family history of seizures History of cocaine use (last used 1 year ago) History of alcohol use and last use was 8 months ago Plan: In the ED the patient was given a loading dose of Keppra 1 g then was started on Keppra 750 every 12 hours. I will lower from 750 to 500mg every 12 hours A routine EEG is ordered and is pending Continue neuro checks On seizure precautions seizure Ordered MRI of the brain with and without seizure protocol. Orthopedic team is on board We'll defer the rest of the medical management to the primary team Per [facility], because of the seizures patient is to avoid driving for 6 month until seizure-free. To avoid heights, avoids swimming unassisted and swim unassisted Recommend the patient to follow-up with a neurologist as an outpatient within 1- 2 weeks The plan was discussed with the patient, primary team and his nurse. Thank you for the consultation. Declan Bah M.D. Neuro-hospitalist Time with Patient: Greater than 30
[2021-10-24 09:42] LABS: Basophils # (A) 0.07 X 10*3/uL (0.00-0.10); Basophils % (A) 0.9 %; Eosinophils # (A) 0.24 X 10*3/uL (0.04-0.35); Eosinophils % (A) 3.1 %; HGB 12.7 g/dL (13.0-17.0); Immature Grans, Automated 0.3 %; Lymphocytes # (A) 3.88 X 10*3/uL (0.90-5.00); Lymphocytes % (A) 50.5 %; MCH 29.3 pg (27.0-32.0); MCHC 31.8 g/dL (32.0-37.0); MCV 92.4 fL (80.0-97.0); Mean Platelet Volume 10.8 fL (9.5-12.2); Monocytes # (A) 0.69 X 10*3/uL (0.20-1.00); NRBC Per 100 WBC 0 /100 WBCS (0.0-0.0); Neutrophils # (A) 2.79 X 10*3/uL (1.80-7.70); Neutrophils % (A) 36.2 %; Platelet Count 308 X 10*3/uL (140-440); RBC 4.33 X 10*6/uL (4.40-5.60); RDW 13.6 % (11.5-14.5); WBC 7.69 X 10*3/uL (4.50-10.00)
[2021-10-24 09:45] LABS: ALT 62 U/L (10-49); AST 42 U/L (14-35); African American GFR (CKD) 135.6 (60.0-200.0); Albumin 4.2 g/dL (3.8-4.9); Albumin/Globulin Ratio 1.85 (1.60-3.17); Alkaline Phosphatase 72 U/L (41-126); BUN/Creat Ratio 27.09 Ratio (12.00-20.00); Blood Urea Nitrogen 19.4 mg/dL (9.0-27.0); Carbon Dioxide 23.6 mmol/L (20.0-27.5); Chloride 110 mmol/L (96-109); Globulin 2.3 g/dL (1.6-3.3); Glucose 98 mg/dL (70-110); Magnesium 2.2 mg/dL (1.5-2.4); Potassium 4.1 mmol/L (3.5-5.5); Sodium 143 mmol/L (135-145); Total Bilirubin <0.15 mg/dL (0.30-1.20); Total Protein 6.5 g/dL (6.2-8.2)
--- NOTE | 2021-10-24 13:13 | MR ---
EXAMINATION TYPE: MR brain wo/w con DATE OF EXAM: 10/24/2021 COMPARISON: CT brain 10/23/2021 HISTORY: Seizure TECHNIQUE: Multiplanar, multisequence images of the brain and brainstem is performed without and with IV contras t, utilizing 9 mL intravenous Gadavist . FINDINGS: Diffusion weighted images demonstrate no evidence of a recent infarct or other diffusion ab normality. There is no extra-axial fluid collection or significant white matter signal abnormality. The ventricular system and cisternal spaces are normal in size and appearance. The brain volume is age appropriate. Midline structures demonstrate normal morphology. The craniocervical junction appears within normal limits. Post contrast images demonstrate no abnormal enhancement. The dural venous sinuses appear pa tent. The visualized sinuses are clear and the globes are intact. IMPRESSION: No acute process.
[2021-10-24 13:46] VITALS: BP 146/97; PULSE 70; TEMP 97.8
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
--- NOTE | 2021-10-24 15:27 | EEG ---
ELECTROENCEPHALOGRAM REPORT DATE OF SERVICE: 10/24/2021 CLINICAL HISTORY: This is 41-year-old gentleman who presented to the emergency department because of stiffening with loss of consciousness. The video EEG is obtained to evaluate for seizure epileptiform activity. RELEVANT MEDICATION: Keppra. EEG TYPE: A routine 21 channel EEG is performed with video using the 10/20 electrode system. DESCRIPTION: Wakefulness, drowsiness and sleep state is obtained. During awake state, the posterior- dominant rhythm consists of low to moderate voltage of 9.5 to 10 hertz activity. During stage II state there are K complexes with sleep spindles seen. There is no focal slowing. Interictal and ictal is none. ACTIVATION PROCEDURE: Photic stimulation did not evoke a posterior driving response. There is no abnormality during the photic stimulation. Hyperventilation is not performed. CLINICAL INTERPRETATION: This is a normal routine EEG during awake and sleep state. There is no focal slowing, epileptiform discharge or seizure on the EEG. Clinical correlation is recommended. LIONEL / CARMENN: [id number] / RAMSES
[2021-10-24] MEDS ORDERED: levETIRAcetam 500 MG TAB PO SCH (21:00)
== END 2021-10-24 15:20 | disposition home or self-care (01) ==
LOC: EC 14:05 → 6NMEDSUR 17:21
PROVIDERS: ADMIT Internal Medicine; ATTEND Internal Medicine
DX: R56.9 Unspecified convulsions (principal); E87.8 Other disorders of electrolyte and fluid balance, not elsewhere classified; I10 Essential (primary) hypertension; M19.011 Primary osteoarthritis, right shoulder; S22.32XA Fracture of one rib, left side, initial encounter for closed fracture; G43.909 Migraine, unspecified, not intractable, without status migrainosus; F32.A Depression, unspecified; F41.9 Anxiety disorder, unspecified; F17.210 Nicotine dependence, cigarettes, uncomplicated; M25.511 Pain in right shoulder; Z91.041 Radiographic dye allergy status; Z91.02 Food additives allergy status; Z90.49 Acquired absence of other specified parts of digestive tract; Z87.828 Personal history of other (healed) physical injury and trauma; Z87.898 Personal history of other specified conditions; Z98.890 Other specified postprocedural states; Z82.49 Family history of ischemic heart disease and other diseases of the circulatory system; Z80.7 Family history of other malignant neoplasms of lymphoid, hematopoietic and related tissues; Z82.0 Family history of epilepsy and other diseases of the nervous system
CPT/HCPCS: 96376 ×2; 96361 ×3; 96372 ×2; 96374; 96375; 99285; 36415; 95819; 93005; 80053 ×2; 83735 ×2; 85025 ×2; 81003; 80306; 73030; 70450; 70553; G0378 ×2; G0480; S4990; J2270 ×2; J2360; J1885 ×2; J1953; A9585; J1644; 80320

== ENCOUNTER 2021-11-08 12:31 | Inpatient (IN) | payer MEDICAID, OTHER ==
--- NOTE | 2021-11-08 14:07 | XR ---
KUB HISTORY: Abdominal pain Frontal KUB and 2 images correlated prior KUB 07/27/2015 Surgical clips are present right upper quadrant. There are air-fluid levels with distended small inessa l loop in the left upper quadrant. Lung bases are clear. No evident pathologic calcification. Surgica l clip is noted in the pelvis. IMPRESSION: Correlate for ileus, enteritis, follow-up as indicated
[2021-11-08 14:08] LABS: Basophils # (A) 0.1 k/uL (0-0.2); Basophils % (A) 1 %; Eosinophils # (A) 0.2 k/uL (0-0.7); Eosinophils % (A) 2 %; HCT 45.1 % (39.0-53.0); HGB 14.8 gm/dL (13.0-17.5); Lymphocytes % (A) 38 %; MCHC 32.8 g/dL (31.0-37.0); MCV 94.4 fL (80.0-100.0); Mean Platelet Volume 7.1; Monocytes # (A) 0.4 k/uL (0-1.0); Monocytes % (A) 5 %; Neutrophils # (A) 3.9 k/uL (1.3-7.7); Neutrophils % (A) 50 %; Platelet Count 428 k/uL (150-450); RBC 4.78 m/uL (4.30-5.90); RDW 13.7 % (11.5-15.5); WBC 7.7 k/uL (3.8-10.6)
[2021-11-08 14:18] LABS: Appearance,Urine Clear (Clear); Bilirubin,Urine Negative (Negative); Blood,Urine Negative (Negative); Color,Urine Light Yellow; Glucose,Urine (UA) Negative (Negative); Ketones,Urine Negative (Negative); Leukocyte Esterase,Urine Trace (Negative); Mucus,Urine Rare /hpf; Nitrite,Urine Negative (Negative); PH, Urine 5.5 (5.0-8.0); Protein,Urine Negative (Negative); RBC,Urine <1 /hpf (0-5); Specific Gravity,Urine 1.011 (1.001-1.035); Urobilinogen,Urine <2.0 mg/dL (<2.0); WBC,Urine 1 /hpf (0-5)
[2021-11-08 14:23] LABS: ALT 17 U/L (4-49); AST 22 U/L (17-59); African American GFR (CKD) >90 (>60 ml/min/1.73 sqM); Albumin 4.7 g/dL (3.5-5.0); Alkaline Phosphatase 69 U/L (38-126); Amylase 66 U/L (30-110); Anion Gap 9 mmol/L; Blood Urea Nitrogen 13 mg/dL (9-20); Calcium 9.1 mg/dL (8.4-10.2); Carbon Dioxide 21 mmol/L (22-30); Chloride 109 mmol/L (98-107); Glucose 108 mg/dL (74-99); Lipase 123 U/L (23-300); Non-African American GFR(CKD) >90 (>60 ml/min/1.73 sqM); Potassium 4.4 mmol/L (3.5-5.1); Sodium 139 mmol/L (137-145); Total Bilirubin 0.5 mg/dL (0.2-1.3); Total Protein 7.6 g/dL (6.3-8.2)
[2021-11-08] MEDS ORDERED: levETIRAcetam 500 MG TAB PO STA (15:10)
--- NOTE | 2021-11-08 15:35 | ED ---
General Adult HPI - General Chief complaint: Psychiatric Symptoms Stated complaint: mental health Time Seen by Provider: 11/08/21 14:27 Source: patient, RN notes reviewed, old records reviewed Mode of arrival: ambulatory Limitations: no limitations - History of Present Illness Initial comments: Patient is a 41-year-old male with past medical history remarkable for recently diagnosed seizure disorder, polysubstance abuse, who presents emergency Departm ent seeking psychiatric evaluation. States he has been struggling with his substance abuse, and the urge has been worse lately. Uses crystal meth as well as alcohol the past. His acute going to relapse. States he started feeling depressed and feels lost. He has been dealing with a chronic history of generalized abdominal pain and bloating since it is gallbladder removed. No changes in terms of that. Also was recently diagnosed with seizure disorder multiple months ago but is benign compliant with his Keppra. Last seizure was 3 weeks ago. Has been clean for multiple months from alcohol and drugs. Denies suicidal or homicidal ideations, attempts, plans. Denies visual or auditory jose martin lucinations. Presents for psychiatric evaluation. - Related Data Previous Rx's Medication Instructions Recorded Ibuprofen [Motrin] 800 mg PO Q8H PRN #30 tab 10/24/21 levETIRAcetam [Keppra] 500 mg PO Q12HR 30 Days #60 tab 10/24/21 Allergies Allergy/AdvReac Type Severity Reaction Status Date / Time Iodinated Contrast Media Allergy Unknown Verified 11/08/21 16:50 Childhood monosodium glutamate [MSG] AdvReac Nausea Verified 11/08/21 16:50 Review of Systems ROS Statement: Those systems with pertinent positive or pertinent negative responses have been documented in the HPI. Review of Systems: CONST: Denies fever EYES: Denies blurry vision ENT: Denies nasal congestion C/V: Denies Chest pain RESP: Denies shortness of breath GI: Denies abdominal pain : Denies dysuria SKIN: Denies rash. MSK: Denies joint pain. NEURO: Denies headache PSYCH: Denies suicidal and homicidal ideations/plans/attempts. Denies visual or auditory hallucinations. ROS Other: All systems not noted in ROS Statement are negative. Past Medical History Past Medical History: Hypertension Additional Past Medical History / Comment(s): migraines. 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 Past Anesthesia/Blood Transfusion Reactions: No Reported Reaction Past Psychological History: Anxiety, Depression Smoking Status: Current every day smoker Past Alcohol Use History: Occasional Past Drug Use History: None Reported - Past Family History Father Family Medical History: Myocardial Infarction ([place]) Additional Family Medical History / Comment(s): Father of a PR at the age of 61 yrs. Mother Family Medical History: Cancer Additional Family Medical History / Comment(s): Mother has stage IV lymphoma. General Exam - General Exam Comments Initial Comments: General: Appears in no acute distress. HEAD: Normal with no signs of head trauma. EYES: PERRLA, EOMI, conjunctiva normal, no discharge. ENT: Hearing grossly intact, normal oropharynx. RESPIRATORY: Clear breath sounds bilaterally. No wheezes, rales, or rhonchi. C/V: Regular rate and rhythm. S1 and S2 auscultated, no edema, peripheral pulses 2+ and intact throughout ABD: Abd is soft, nontender, nondistended EXT: Normal range of motion, no obvious deformity SKIN: No rashes or lesions observed on exposed skin. NEURO: Alert and oriented x 4. Limitations: no limitations Course Vital Signs 11/08/21 11/08/21 13:18 18:47 Temperature 98.1 F 97.6 F Pulse Rate 76 71 Respiratory 18 17 Rate Blood Pressure 142/81 127/83 O2 Sat by Pulse 98 98 Oximetry Medical Decision Making - Medical Decision Making Based on the patient's presentation and physical exam, I do believe he requires psychiatric evaluation. I evaluated him when he was placed in a room. Basic labs were obtained by triage were unremarkable. Patient was placed in green scrubs. BAT is 0. UDS is still pending at this time. I will provide him with a dose of his home Which she has been noncompliant with. Patient otherwise is resting comfortably. He is medically cleared at this time. Vital signs are within normal limits. Patient's medically cleared for evaluation by EPS. Disposition is pending psychiatric evaluation.After evaluation by EPS, patient does meet inpatient criteria for admission. Patient will be admitted in stable condition to inpatient psychiatry. - Lab Data Result diagrams: 11/08/21 13:36 11/08/21 13:36 Lab Results 08/07/2711/08/21 11/08/21 Range/Units 13:36 13:36 13:39 WBC 7.7 (3.8-10.6) k/uL RBC 4.78 (4.30-5.90) m/uL Hgb 14.8 (13.0-17.5) gm/dL Hct 45.1 (39.0-53.0) % MCV 94.4 (80.0-100.0) fL MCH 31.0 (25.0-35.0) pg MCHC 32.8 (31.0-37.0) g/dL RDW 13.7 (11.5-15.5) % Plt Count 428 (150-450) k/uL MPV 7.1 Neutrophils % 50 % Lymphocytes % 38 % Monocytes % 5 % Eosinophils % 2 % Basophils % 1 % Neutrophils # 3.9 (1.3-7.7) k/uL Lymphocytes # 3.0 (1.0-4.8) k/uL Monocytes # 0.4 (0-1.0) k/uL Eosinophils # 0.2 (0-0.7) k/uL Basophils # 0.1 (0-0.2) k/uL Sodium 139 (137-145) mmol/L Potassium 4.4 (3.5-5.1) mmol/L Chloride 109 H (98-107) mmol/L Carbon Dioxide 21 L (22-30) mmol/L Anion Gap 9 mmol/L BUN 13 (9-20) mg/dL Creatinine 0.76 (0.66-1.25) mg/dL Est GFR (CKD-EPI)AfAm >90 (>60 ml/min/1.73 sqM) Est GFR (CKD-EPI)NonAf >90 (>60 ml/min/1.73 sqM) Glucose 108 H (74-99) mg/dL Calcium 9.1 (8.4-10.2) mg/dL Total Bilirubin 0.5 (0.2-1.3) mg/dL AST 22 (17-59) U/L ALT 17 (4-49) U/L Alkaline Phosphatase 69 (38-126) U/L Total Protein 7.6 (6.3-8.2) g/dL Albumin 4.7 (3.5-5.0) g/dL Amylase 66 (30-110) U/L Lipase 123 (23-300) U/L Urine Color Light Yellow Urine Appearance Clear (Clear) Urine pH 5.5 (5.0-8.0) Ur Specific [place] 1.011 (1.001-1.035) Urine Protein Negative (Negative) Urine Glucose (UA) Negative (Negative) Urine Ketones Negative (Negative) Urine Blood Negative (Negative) Urine Nitrite Negative (Negative) Urine Bilirubin Negative (Negative) Urine Urobilinogen <2.0 (<2.0) mg/dL Ur Leukocyte Esterase Trace H (Negative) Urine RBC <1 (0-5) /hpf Urine WBC 1 (0-5) /hpf Urine Mucus Rare H (None) /hpf Urine Opiates Screen (NotDetected) Ur Oxycodone Screen (NotDetected) Urine Methadone Screen (NotDetected) Ur Propoxyphene Screen (NotDetected) Ur Barbiturates Screen (NotDetected) U Tricyclic Antidepress (NotDetected) Ur Phencyclidine Scrn (NotDetected) Ur Amphetamines Screen (NotDetected) U Methamphetamines Scrn (NotDetected) U Benzodiazepines Scrn (NotDetected) Urine Cocaine Screen (NotDetected) U Marijuana (THC) Screen (NotDetected) Coronavirus (PCR) (Not Detectd) 11/08/21 11/08/21 Range/Units 13:39 Unknown WBC (3.8-10.6) k/uL RBC (4.30-5.90) m/uL Hgb (13.0-17.5) gm/dL Hct (39.0-53.0) % MCV (80.0-100.0) fL MCH (25.0-35.0) pg MCHC (31.0-37.0) g/dL RDW (11.5-15.5) % Plt Count (150-450) k/uL MPV Neutrophils % % Lymphocytes % % Monocytes % % Eosinophils % % Basophils % % Neutrophils # (1.3-7.7) k/uL Lymphocytes # (1.0-4.8) k/uL Monocytes # (0-1.0) k/uL Eosinophils # (0-0.7) k/uL Basophils # (0-0.2) k/uL Sodium (137-145) mmol/L Potassium (3.5-5.1) mmol/L Chloride (98-107) mmol/L Carbon Dioxide (22-30) mmol/L Anion Gap mmol/L BUN (9-20) mg/dL Creatinine (0.66-1.25) mg/dL Est GFR (CKD-EPI)AfAm (>60 ml/min/1.73 sqM) Est GFR (CKD-EPI)NonAf (>60 ml/min/1.73 sqM) Glucose (74-99) mg/dL Calcium (8.4-10.2) mg/dL Total Bilirubin (0.2-1.3) mg/dL AST (17-59) U/L ALT (4-49) U/L Alkaline Phosphatase (38-126) U/L Total Protein (6.3-8.2) g/dL Albumin (3.5-5.0) g/dL Amylase (30-110) U/L Lipase (23-300) U/L Urine Color Urine Appearance (Clear) Urine pH (5.0-8.0) Ur Specific [place] (1.001-1.035) Urine Protein (Negative) Urine Glucose (UA) (Negative) Urine Ketones (Negative) Urine Blood (Negative) Urine Nitrite (Negative) Urine Bilirubin (Negative) Urine Urobilinogen (<2.0) mg/dL Ur Leukocyte Esterase (Negative) Urine RBC (0-5) /hpf Urine WBC (0-5) /hpf Urine Mucus (None) /hpf Urine Opiates Screen Not Detected (NotDetected) Ur Oxycodone Screen Not Detected (NotDetected) Urine Methadone Screen Not Detected (NotDetected) Ur Propoxyphene Screen Not Detected (NotDetected) Ur Barbiturates Screen Not Detected (NotDetected) U Tricyclic Antidepress Not Detected (NotDetected) Ur Phencyclidine Scrn Not Detected (NotDetected) Ur Amphetamines Screen Not Detected (NotDetected) U Methamphetamines Scrn Not Detected (NotDetected) U Benzodiazepines Scrn Not Detected (NotDetected) Urine Cocaine Screen Not Detected (NotDetected) U Marijuana (THC) Screen Not Detected (NotDetected) Coronavirus (PCR) Not Detected (Not Detectd) Disposition Clinical Impression: Encounter for psychiatric assessment, Polysubstance abuse Disposition: ADMITTED IP TO THIS HOSP Condition: Stable Referrals: None,Stated [Primary Care Provider] - 1-2 days
[2021-11-08 17:57] LABS: Amphetamine Screen,Urine Not Detected (NotDetected); Barbiturate Screen,Urine Not Detected (NotDetected); Benzodiazepines Screen,Urine Not Detected (NotDetected); Cocaine Screen,Urine Not Detected (NotDetected); Methadone Screen, Urine Not Detected (NotDetected); Opiate Screen,Urine Not Detected (NotDetected); Oxycodone Screen, Urine Not Detected (NotDetected); Phencyclidine Screen,Urine Not Detected (NotDetected); Tricyclic Antidepressant,Urine Not Detected (NotDetected); Urn Cannabinoid Scrn Not Detected (NotDetected)
[2021-11-08] MEDS ORDERED: MAGNESIUM HYDROXIDE 2,400 MG/10 ML CUP PO PRN (20:29)
[2021-11-08] MEDS ORDERED: MAG HYDROX/AL HYDROX/SIMETH 30 ML CUP PO PRN (20:29)
[2021-11-08] MEDS ORDERED: ACETAMINOPHEN TAB 325 MG TAB PO PRN (20:29)
[2021-11-08] MEDS ORDERED: haloperidoL 5 MG TAB PO PRN (20:29)
[2021-11-08] MEDS ORDERED: HALOPERIDOL LACTATE 5 MG/ML 1 ML VIAL IM PRN (20:29)
[2021-11-08] MEDS ORDERED: LORazepam 2 MG/ML INJ IM PRN (20:29)
[2021-11-08] MEDS: levETIRAcetam 500 MG TAB PO SCH (21:34)
[2021-11-08] MEDS: LORazepam 1 MG TAB PO PRN (21:34)
[2021-11-08] MEDS: MIRTAZAPINE 15 MG TAB PO SCH (22:18)
[2021-11-08 23:54] VITALS: RESP 18
--- NOTE | 2021-11-09 01:17 | P.CONS ---
History of Present Illness - Reason for Consult Consult date: 11/08/21 - History of Present Illness The patient is a 41-year-old male with a PMH of seizure disorder and polysubstance abuse who presented to the emergency room seeking psychiatric help. The patient was admitted to the mental health unit where he was seen and evaluated. The patient reports that he has been continuing to use illicit substances including IV crystal meth, and that he wishes to get clean. He reports that he was recently diagnosed with seizure disorder and was prescribed Keppra with which she has been compliant. He reports smoking half pack of cigarettes daily but denied any alcohol use. Reports chronic right shoulder pain. Denied chest discomfort, shortness of breath, fever, chills, cough, nausea, vomiting, abdominal pain, diarrhea. Review of systems: Pertinent positives and negatives as discussed in HPI, a complete review of systems was performed and all other systems are negative. Physical examination: General: non toxic, no distress, appears at stated age Derm: no unusual rashes/lesions, no unusual ecchymoses, warm, dry Head: atraumatic, normocephalic, symmetric Eyes: EOMI, no lid lag, anicteric sclera ENT: Nose and ears atraumatic, no thrush, no pharyngeal erythema Neck: trachea midline, supple Mouth: no lip lesion, mucus membranes moist Cardiovascular: S1S2 reg, no murmur, no edema Lungs: CTA bilateral, no rhonchi, no rales , no accessory muscle use Abdominal: soft, nontender to palpation, no guarding Ext: no gross muscle atrophy, no contractures, Neuro: No gross focal neuro deficits noted Psych: Alert, oriented, appropriate affect Assessment/plan Polysubstance abuse, tobacco abuse -Advised on the importance of cessation Seizure disorder -Continue home Keppra Right shoulder pain -Patient requested additional pain control -Start Voltcayetanon Thank you for allowing us to participate in the care of this patient. We will follow peripherally. Do not hesitate to contact us with questions. Someone can be reached from the [facility] hospitalist group at all hours of the day at [phone]. Past Medical History Past Medical History: Hypertension Additional Past Medical History / Comment(s): migraines. 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 Past Anesthesia/Blood Transfusion Reactions: No Reported Reaction Past Psychological History: Anxiety, Depression Smoking Status: Current every day smoker Past Alcohol Use History: Occasional Past Drug Use History: None Reported - Past Family History Father Family Medical History: Myocardial Infarction ([place]) Additional Family Medical History / Comment(s): Father of a [place] at the age of 61 yrs. Mother Family Medical History: Cancer Additional Family Medical History / Comment(s): Mother has stage IV lymphoma. Medications and Allergies Home Medications Medication Instructions Recorded Confirmed Type Ibuprofen [Motrin] 800 mg PO Q8H PRN #30 tab 10/24/21 11/08/21 Rx levETIRAcetam [Keppra] 500 mg PO Q12HR 30 Days #60 tab 10/24/21 11/08/21 Rx Allergies Allergy/AdvReac Type Severity Reaction Status Date / Time Iodinated Contrast Media Allergy Unknown Verified 11/08/21 16:50 Childhood monosodium glutamate [MSG] AdvReac Nausea Verified 11/08/21 16:50 Physical Exam Vitals: Vital Signs Temp Pulse Resp BP Pulse Ox 11/08/21 18:47 97.6 F 71 17 127/83 98 11/08/21 13:18 98.1 F 76 18 142/81 98 Intake and Output 11/08/21 11/08/21 11/08/21 06:59 14:59 22:59 Other: Weight 90.718 kg Results CBC & Chem 7: 11/08/21 13:36 11/08/21 13:36 Labs: Abnormal Lab Results - Last 24 Hours (Table) 11/08/21 11/08/21 Range/Units 13:36 13:39 Chloride 109 H (98-107) mmol/L Carbon Dioxide 21 L (22-30) mmol/L Glucose 108 H (74-99) mg/dL Ur Leukocyte Esterase Trace H (Negative) Urine Mucus Rare H (None) /hpf
[2021-11-09] MEDS ORDERED: DICLOFENAC SODIUM GEL 100 GM TUBE TOPICAL PRN (01:30)
[2021-11-09 09:58] LABS: Basophils % (A) 1 %; Eosinophils # (A) 0.2 k/uL (0-0.7); Eosinophils % (A) 3 %; HCT 46.2 % (39.0-53.0); HGB 14.9 gm/dL (13.0-17.5); Lymphocytes # (A) 2.3 k/uL (1.0-4.8); Lymphocytes % (A) 34 %; MCH 30.7 pg (25.0-35.0); MCHC 32.3 g/dL (31.0-37.0); Mean Platelet Volume 7.3; Monocytes # (A) 0.3 k/uL (0-1.0); Monocytes % (A) 5 %; Neutrophils # (A) 3.8 k/uL (1.3-7.7); Neutrophils % (A) 55 %; Platelet Count 411 k/uL (150-450); RBC 4.86 m/uL (4.30-5.90); WBC 6.9 k/uL (3.8-10.6)
[2021-11-09 10:10] LABS: ALT 17 U/L (4-49); AST 20 U/L (17-59); African American GFR (CKD) >90 (>60 ml/min/1.73 sqM); Albumin 4.6 g/dL (3.5-5.0); Alkaline Phosphatase 60 U/L (38-126); Anion Gap 5 mmol/L; Bilirubin, Delta 0.1 mg/dL (0.0-0.2); Bilirubin,Unconjugated 0.3 mg/dL (0.0-1.1); Blood Urea Nitrogen 14 mg/dL (9-20); Calcium 9.2 mg/dL (8.4-10.2); Carbon Dioxide 26 mmol/L (22-30); Chloride 108 mmol/L (98-107); Glucose 72 mg/dL (74-99); Non-African American GFR(CKD) >90 (>60 ml/min/1.73 sqM); Potassium 5.1 mmol/L (3.5-5.1); Sodium 139 mmol/L (137-145); Total Bilirubin 0.4 mg/dL (0.2-1.3); Total Protein 7.5 g/dL (6.3-8.2)
[2021-11-09] MEDS: NICOTINE 14MG/24HR PATCH TRANSDERM SCH (10:17)
[2021-11-09] MEDS: levETIRAcetam 500 MG TAB PO SCH ×2 (10:20→20:38)
[2021-11-09] MEDS: LORazepam 1 MG TAB PO PRN ×2 (10:21→20:39)
[2021-11-09 14:17] LABS: Chol/HDL Ratio 4.67 Ratio; LDL Cholesterol,Calculated 130.5 mg/dL (0.0-131.0)
[2021-11-09] MEDS: SERTRALINE 50 MG TAB PO SCH (14:54)
--- NOTE | 2021-11-09 15:14 | P.HP ---
Psychiatric H&P - . H&P Date: 11/09/21 History & Physical: Allergies Allergy/AdvReac Type Severity Reaction Status Date / Time Iodinated Contrast Media Allergy Unknown Verified 11/08/21 16:50 Childhood monosodium glutamate MSG AdvReac Nausea Verified 11/08/21 16:50 Vital Signs Temp 97.5 F L 11/09/21 10:24 Pulse 76 11/09/21 10:24 Resp 18 11/09/21 10:24 BP 124/77 11/09/21 10:24 Pulse Ox 98 11/09/21 10:24 FiO2 Intake & Output 11/08/21 11/09/21 11/09/21 18:59 06:59 18:59 Weight 90.718 kg 90.718 kg Laboratory Last Values WBC 6.9 k/uL (3.8-10.6) 11/09/21 09:27 RBC 4.86 m/uL (4.30-5.90) 11/09/21 09:27 Hgb 14.9 gm/dL (13.0-17.5) 11/09/21 09:27 Hct 46.2 % (39.0-53.0) 11/09/21 09:27 MCV 95.0 fL (80.0-100.0) 11/09/21 09:27 MCH 30.7 pg (25.0-35.0) 11/09/21 09:27 MCHC 32.3 g/dL (31.0-37.0) 11/09/21 09:27 RDW 14.0 % (11.5-15.5) 11/09/21 09:27 Plt Count 411 k/uL (150-450) 11/09/21 09:27 MPV 7.3 11/09/21 09:27 Neutrophils % 55 % 11/09/21 09:27 Lymphocytes % 34 % 11/09/21 09:27 Monocytes % 5 % 11/09/21 09:27 Eosinophils % 3 % 11/09/21 09:27 Basophils % 1 % 11/09/21 09:27 Neutrophils # 3.8 k/uL (1.3-7.7) 11/09/21 09:27 Lymphocytes # 2.3 k/uL (1.0-4.8) 11/09/21 09:27 Monocytes # 0.3 k/uL (0-1.0) 11/09/21 09:27 Eosinophils # 0.2 k/uL (0-0.7) 11/09/21 09: Basophils # 0.0 k/uL (0-0.2) 11/09/21 09:27 Sodium 139 mmol/L (137-145) 11/09/21 09:27 Potassium 5.1 mmol/L (3.5-5.1) 11/09/21 09: Chloride 108 mmol/L (98-107) H 11/09/21 09: Carbon Dioxide 26 mmol/L (22-30) 11/09/21 09: Anion Gap 5 mmol/L 11/09/21 09: BUN 14 mg/dL (9-20) 11/09/21 09: Creatinine 0.86 mg/dL (0.66-1.25) 11/09/21 09: Est GFR (CKD-EPI)AfAm >90 (>60 ml/min/1.73 sqM) 11/09/21: Est GFR (CKD-EPI)NonAf >90 (>60 ml/min/1.73 sqM) 11/09/21 09: Glucose 72 mg/dL (74-99) L 11/09/21 09: Estimated Ave Glu mg/dL 102 11/09/21 09: Hemoglobin A1c 5.2 % (0.0-6.0) 11/09/21: Calcium 9.2 mg/dL (8.4-10.2) 11/09/21: Total Bilirubin 0.4 mg/dL (0.2-1.3) 11/09/21 09: Conjugated Bilirubin 0.0 mg/dL (0.0-0.3) 11/09/21 09: Unconjugated Bilirubin 0.3 mg/dL (0.0-1.1) 11/09/21: Delta Bilirubin 0.1 mg/dL (0.0-0.2) 11/09/21 09:27 AST 20 U/L (17-59) 11/09/21 09: ALT 17 U/L (4-49) 11/09/21 09: Alkaline Phosphatase 60 U/L (38-126) 11/09/21 09:27 Total Protein 7.5 g/dL (6.3-8.2) 11/09/21 09:27 Albumin 4.6 g/dL (3.5-5.0) 11/09/21 09:27 Triglycerides 161.00 mg/dL (0.00-149.00) H 11/09/21 09:27 Cholesterol 207.00 mg/dL (0.00-200.00) H 11/09/21 09:27 LDL Cholesterol, Calc 130.5 mg/dL (0.0-131.0) 11/09/21 09: VLDL Cholesterol, Calc 32.20 mg/dL (5.00-40.00) 11/09/21 09: HDL Cholesterol 44.30 mg/dL (40.00-60.00) 11/09/21 09: Cholesterol/HDL Ratio 4.67 Ratio 11/09/21 09: Amylase 66 U/L (30-110) 11/08/21 13:36 Lipase 123 U/L (23-300) 11/08/21 13:36 TSH 1.800 mIU/L (0.465-4.680) 11/09/21 09:27 Urine Color Light Yellow 11/08/21 13:39 Urine Appearance Clear (Clear) 11/08/21 13:39 Urine pH 5.5 (5.0-8.0) 11/08/21 13:39 Ur Specific [place] 1.011 (1.001-1.035) 11/08/21 13:39 Urine Protein Negative (Negative) 11/08/21 13:39 Urine Glucose (UA) Negative (Negative) 11/08/21 13:39 Urine Ketones Negative (Negative) 11/08/21 13:39 Urine Blood Negative (Negative) 11/08/21 13:39 Urine Nitrite Negative (Negative) 11/08/21 13:39 Urine Bilirubin Negative (Negative) 11/08/21 13:39 Urine Urobilinogen <2.0 mg/dL (<2.0) 11/08/21 13:39 Ur Leukocyte Esterase Trace (Negative) H 11/08/21 13:39 Urine RBC <1 /hpf (0-5) 11/08/21 13:39 Urine WBC 1 /hpf (0-5) 11/08/21 13:39 Urine Mucus Rare /hpf (None) H 11/08/21 13:39 Urine Opiates Screen Not Detected (NotDetected) 11/08/21 13:39 Ur Oxycodone Screen Not Detected (NotDetected) 11/08/21 13:39 Urine Methadone Screen Not Detected (NotDetected) 11/08/21 13:39 Ur Propoxyphene Screen Not Detected (NotDetected) 11/08/21 13:39 Ur Barbiturates Screen Not Detected (NotDetected) 11/08/21 13:39 U Tricyclic Antidepress Not Detected (NotDetected) 11/08/21 13:39 Ur Phencyclidine Scrn Not Detected (NotDetected) 11/08/21 13:39 Ur Amphetamines Screen Not Detected (NotDetected) 11/08/21 13:39 U Methamphetamines Scrn Not Detected (NotDetected) 11/08/21 13:39 U Benzodiazepines Scrn Not Detected (NotDetected) 11/08/21 13:39 Urine Cocaine Screen Not Detected (NotDetected) 11/08/21 13:39 U Marijuana (THC) Screen Not Detected (NotDetected) 11/08/21 13:39 Coronavirus (PCR) Not Detected (Not Detectd) 11/08/21 Unknown 11/09/21 15:06 IDENTIFYING DATA: Patient is a 41 yo male, currently was staying with his mother in a house, a single has no kids. He is unemployed. Recently released from residential. HPI: Patient presented to the hospital yesterday complaining of depression and anxiety and also suicidal thoughts. Patient's UDS was negative however patient states that he has a substance abuse history mainly using crystal meth in the past. He states that he is sober for 120 days now. He claims that since being released from residential he has been in a "bad place" and feels that his depression has gotten worse. He states that he feels that he may relapse back on drugs. He claims that his main stressor is being at home for the past 2 weeks living with his mother and "were not getting along" and he feels that she is trying to "push me out". He states that he is interested in getting substance abuse help however does not want to go to rehab and wants to go to a "residential program". He is endorsing depression today and also anxiety. He states that he was feeling suicidal however not today. He claims that he has racing thoughts at times. He states that his sleep has been poor about 2 hours a day. Appetite is been fair. Patient denies any suicidal or homicidal ideations intent or plan. At this time patient denies any auditory or visual hallucinations. Patient admits to using no recreational drugs at this time however does have a history of methamphetamine abuse. PAST PSYCHIATRIC HISTORY: Patient states that he has a history of depression and anxiety. Patient denies being on any psychiatric medications. Patient denies any previous psychiatric hospitalizations. Patient denies any psychiatric outpatient follow-up. Patient denies any history of suicide attempts in the past. PMH: As per medicine H&P. ALLERGIES: as per EMR CHEMICAL DEPENDENCY HISTORY: as per HPI FAMILY PSYCHIATRIC/SUBSTANCE USE HISTORY: Claims that his mother, brother and sister all have "bipolar and schizophrenia". SOCIAL HISTORY: Patient was born and raised in [facility]. He states that he completed high school. He states that he worked doing [employer] in the past however now is unemployed. He states that he is single, has no kids. He states that he was in residential recently and spent 3 months there and released 2 weeks ago. He claims that he was charged with "unlawful drive away". MENTAL STATUS EXAM: General Appearance: Patient appears to be tall, well-built, stated age is alert, directable, and attempts to cooperate. Patient appears to have fair hygiene and grooming. Behavior: Patient is seated without any agitated behavior. Appears to be anxious and distracted. Speech: Patient's speech is fluent and nonpressured. Soft tone Mood/Affect: Patient reports their mood is depressed and anxious, affect is congruent Suicidality/Homicidality: Patient denies having any homicidal ideation intent or plan. Denies any suicidal ideations intent or plan Perceptions: Patient denies any visual hallucinations and denies any auditory hallucinations Though content/process: There is no evidence of any delusional thought content and thought process is linear and goal-directed. Focused on getting help and treatment. Memory and concentration: AOX3, grossly intact for the purposes of this session. Can spell "WORLD" backwards Judgment and insight: poor STRENGTHS/WEAKNESSES: strength is that patient is resilient. 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 Patient has signed adult voluntary form and medication consent and is placed in patient's chart. -Medications : Will start patient on Zoloft 50 mg daily for mood/anxiety, Remeron 15 mg daily at bedtime for insomnia/mood/appetite. Melatonin 5 mg daily at bedtime when necessary for insomnia. -Ativan and Haldol PRN for agitation/aggression -Patient was informed of the risks, benefits and side effects of the medication and patient verbally consented to taking the medications. Patient signed med consent form and was placed in chart. -Internal Medicine consult to perform medical evaluation and physical. -NRT - nicotine patch -SW on board for discharge planning. Encourage patient to participate in groups to work on coping skills. SW to look into residential programs for substance use and different options for patients. He is not agreeable to go to rehab at this t [facility]. 11/09/21 15:12 11/09/21 15:12
[2021-11-09] MEDS: MIRTAZAPINE 15 MG TAB PO SCH (20:39)
[2021-11-09] MEDS: MELATONIN 5 MG TABLET PO PRN (20:39)
[2021-11-10 07:05] VITALS: PULSE 72; TEMP 98
[2021-11-10] MEDS: NICOTINE 14MG/24HR PATCH TRANSDERM SCH (08:49)
[2021-11-10] MEDS: levETIRAcetam 500 MG TAB PO SCH ×2 (08:51→20:24)
[2021-11-10] MEDS: SERTRALINE 50 MG TAB PO SCH (08:51)
[2021-11-10] MEDS: LORazepam 1 MG TAB PO PRN ×2 (08:55→18:21)
[2021-11-10] MEDS: hydrOXYzine pamoate 25 MG CAP PO PRN ×2 (14:34→20:24)
--- NOTE | 2021-11-10 18:01 | P.PN ---
Progress Note - Text Progress Note Date: 11/10/21 Interval History: Patient was directable and agreeable to speak with senior writer in the office. He is compliant with medications and denies side effects. He endorses anxiety and feels depressed today. He reports fairly good sleep but still wakes up a few times, good appetite. At this time, patient denies any suicidal or homicidal ideations, intent or plan. Patient denies any auditory, visual hallucinations, and denies any paranoia or delusions. He inquires about assistance with housing and he was directed to his hospice social worker. Mental Status Exam: General Appearance: Patient appears to be stated age, has tattoos on his arm, is dressed neatly in casual attire. Behavior: Patient is calmly seated without any agitated behavior. Speech: Patient's speech is fluent and non-pressured. Mood/Affect: Mood is improving mildly, affect is congruent and constricted. Suicidality/Homicidality: Patient denies having any suicidal or homicidal ideation intent or plan. Perceptions: Patient denies any visual hallucinations and denies any auditory hallucinations. Though content/process: There is no evidence of any delusional thought content and thought process is linear and goal-directed. Memory and concentration: Grossly intact for the purposes of this session Judgment and insight: Improving mildly Assessment/Plan: -Patient continues to meet criteria for inpatient psychiatric admission for symptom stabilization and safety. -Continue current diagnosis. -Medications: Continue Zoloft 50 mg daily for depression/anxiety. Will consider increasing to 100 mg daily as tolerated. Continue Remeron 15 mg daily for mood/insomnia/appetite. -When necessary Ativan and Haldol for agitation/aggression. -NRT - nicotine patch - Encouraged the patient to participate in milieu.
[2021-11-10] MEDS: MIRTAZAPINE 15 MG TAB PO SCH (20:24)
[2021-11-10] MEDS: MELATONIN 5 MG TABLET PO PRN (20:24)
[2021-11-11 09:05] VITALS: BP 130/72
[2021-11-11] MEDS: NICOTINE 14MG/24HR PATCH TRANSDERM SCH (09:05)
[2021-11-11] MEDS: hydrOXYzine pamoate 25 MG CAP PO PRN ×2 (09:05→21:13)
[2021-11-11] MEDS: SERTRALINE 50 MG TAB PO SCH (09:05)
[2021-11-11] MEDS: levETIRAcetam 500 MG TAB PO SCH ×2 (09:05→21:12)
[2021-11-11] MEDS: LORazepam 1 MG TAB PO PRN (11:51)
[2021-11-11] MEDS ORDERED: SERTRALINE 50 MG TAB PO STA (14:28)
--- NOTE | 2021-11-11 14:34 | P.PN ---
Progress Note - Text Progress Note Date: 11/11/21 Interval History: Patient was found resting and agrees to meet with this senior copywriter. He is compliant with medications and denies side effects. He endorses anxiety, and lays in his bed worrying about whether he will get treatment for dual diagnosis, has several questions about it today which were answered. He reports adequate sleep and appetite. At this time, patient denies any suicidal or homicidal ideations, intent or plan. Patient denies any auditory, visual hallucinations, and denies any paranoia or delusions. Mental Status Exam: General Appearance: Patient appears to be stated age, has tattoos on his arm. Behavior: Patient is laying in bed without any agitated behavior. Speech: Patient's speech is fluent and non-pressured. Mood/Affect: Mood is anxious, affect is congruent and constricted. Suicidality/Homicidality: Patient denies having any suicidal or homicidal ideation intent or plan. Perceptions: Patient denies any visual hallucinations and denies any auditory hallucinations. Though content/process: There is no evidence of any delusional thought content and thought process is linear and goal-directed. Memory and concentration: Grossly intact for the purposes of this session Judgment and insight: Improving mildly Assessment/Plan: -Patient continues to meet criteria for inpatient psychiatric admission for symptom stabilization and safety. -Continue current diagnosis. -Medications: Increase Zoloft to 100 mg daily for anxiety/depression. Give an additional dose of Zoloft to 50 mg x 1 today to make today's dose 100 mg. Continue Remeron 15 mg daily for mood/insomnia/appetite. -When necessary Ativan and Haldol for agitation/aggression. -NRT - nicotine patch - Encouraged the patient to participate in milieu.
[2021-11-11] MEDS: MIRTAZAPINE 15 MG TAB PO SCH (21:12)
[2021-11-11] MEDS: MELATONIN 5 MG TABLET PO PRN (21:13)
[2021-11-12] MEDS: levETIRAcetam 500 MG TAB PO SCH (08:23)
[2021-11-12] MEDS: NICOTINE 14MG/24HR PATCH TRANSDERM SCH (08:24)
[2021-11-12] MEDS ORDERED: SERTRALINE 100 MG TAB PO SCH (09:00)
--- NOTE | 2021-11-12 12:12 | P.DS ---
Providers Date of admission: 11/08/21 20:25 Expected date of discharge: 11/12/21 Attending physician: Dell Hernandez MD Consults: 11/08/21 20:29 Consult Physician Routine Consulting Provider: Saravanan Physician Consult Reason/Comments: Medical H&P Do you want consulting provider notified?: Yes Primary care physician: Stated None - Discharge Diagnosis(es) (1) Major depressive disorder without psychotic features Current Visit: Yes Status: Acute Priority: High (2) Anxiety disorder Current Visit: Yes Status: Acute Priority: Medium (3) Methamphetamine use disorder, mild, in sustained remission Current Visit: Yes Status: Acute Priority: Low (4) Nicotine dependence Current Visit: Yes Status: Acute Priority: Low Hospital Course: Admission HPI: Admission note was completed by auto service writer "Patient is a 41 yo male, currently was staying with his mother in a house, a single has no kids. He is unemployed. Recently released from [facility]. Patient presented to the hospital ye sterday complaining of depression and anxiety and also suicidal thoughts. Patient's UDS was negative however patient states that he has a substance abuse history mainly using crystal meth in the past. He states that he is sober for 120 days now. He claims that since being released from [facility] he has been in a "bad place" and feels that his depression has gotten worse. He states that he feels that he may relapse back on drugs. He claims that his main stressor is being at home for the past 2 weeks living with his mother and "were not getting along" and he feels that she is trying to "push me out". He states that he is interested in getting substance abuse help however does not want to go to rehab and wants to go to a "residential program". He is endorsing depression today and also anxiety. He states that he was feeling suicidal however not today. He claims that he has racing thoughts at times. He states that his sleep has been poor about 2 hours a day. Appetite is been fair. Patient denies any suicidal or homicidal ideations intent or plan. At this time patient denies any auditory or visual hallucinations. Patient admits to using no recreational drugs at this time however does have a history of methamphetamine abuse." Hospital course: Upon admission to the unit patient was directable and agreeable to commence treatment and signed adult voluntary form. Patient got along well with other patients on the unit and followed unit protocol. Patient was compliant with the medications and denied any side effects throughout hospital course. Patient was started on Zoloft and increased to a dose of 100 mg daily for anxiety/mood, Remeron 15 mg daily at bedtime for mood/insomnia/appetite. Patient spoke of his stressors and engaged in therapy both group and individual. Patient was also seen by medical team for history and physical exam. Throughout the course of the hospitalization patient gradually improved with regards to mood, anxiety, sleep and became more future oriented with improved insight and judgment. On the day of discharge patient denied any suicidal or homicidal ideations intent or plan denied any auditory or visual hallucinations. Patient endorsed wanting to live for his health, sobriety and family. The patient denied any access to guns or weapons. Patient denied any paranoia and did not endorse any delusions. Patient does have a significant history of substance abuse and was counseled on abstaining from all substances including alcohol and marijuana. Patient elected to do outpatient substance use treatment program through [facility]. Patient was also counseled on the medications and need for regular compliance and was encouraged to follow-up with their outpatient appointment for mental health and also for primary care. Mental status exam: General Appearance: Patient appears to be well built, stated age is alert, pleasant, and cooperative. Patient is in no acute distress and has improved hygiene and grooming Behavior: Patient is calmly seated without any agitated behavior. Speech: Patient's speech is fluent and nonpressured. Mood/Affect: Patient reports their mood is "better", affect is congruent and euthymic. Suicidality/Homicidality: Patient denies having any suicidal or homicidal ideation intent or plan. Perceptions: Patient denies any auditory or visual hallucinations. Though content/process: There is no evidence of any delusional thought content and thought process is linear and goal-directed. more future oriented Memory and concentration: AOX3, grossly intact for the purposes of this session. Can spell "WORLD" backwards correctly. Judgment and insight: improved with guarded prognosis Impression: Major depressive disorder, without psychotic features Anxiety disorder unspecified Methamphetamine use disorder, currently in sustained remission Nicotine dependence Plan: -Continue with discharge today as patient has improved and stabilized psychiatrically and is not currently an imminent threat to himself and/or others. -Continue medications: Zoloft 100 mg daily for anxiety/mood, Remeron 15 mg daily at bedtime for mood/insomnia/appetite. -Patient was counseled on the need for medication compliance and appropriate follow-up at mental health and also primary care for medical issues. Patient verbalized understanding and agreed. -Social work to help arrange her patient's discharge today and give him referrals to the dual diagnosis program at her [facility]. Social work also to arrange for patients follow up appointments for psychiatric care along with follow up with primary care provider. -Patient counseled on abstaining from recreational drugs and marijuana and alcohol. Was informed/educated on the adverse effects on their physical and mental health. Patient verbally agreed and understood. -Patient was instructed to return to the hospital or seek immediate medical care if their psychiatric or medical symptoms do worsen or reoccur. Allergies Allergy/AdvReac Type Severity Reaction Status Date / Time Iodinated Contrast Media Allergy Unknown Verified 11/08/21 16:50 Childhood monosodium glutamate [MSG] AdvReac Nausea Verified 11/08/21 16:50 Laboratory Results WBC 6.9 k/uL (3.8-10.6) 11/09/21 09: RBC 4.86 m/uL (4.30-5.90) 11/09/21 09:27 Hgb 14.9 gm/dL (13.0-17.5) 11/09/21 09:27 Hct 46.2 % (39.0-53.0) 11/09/21 09:27 MCV 95.0 fL (80.0-100.0) 11/09/21 09: MCH 30.7 pg (25.0-35.0) 11/09/21 09: MCHC 32.3 g/dL (31.0-37.0) 11/09/21 09: RDW 14.0 % (11.5-15.5) 11/09/21 09:27 Plt Count 411 k/uL (150-450) 11/09/21 09:27 MPV 7.3 11/09/21 09:27 Neutrophils % 55 % 11/09/21 09:27 Lymphocytes % 34 % 11/09/21 09:27 Monocytes % 5 % 11/09/21 09:27 Eosinophils % 3 % 11/09/21 09:27 Basophils % 1 % 11/09/21 09:27 Neutrophils # 3.8 k/uL (1.3-7.7) 11/09/21 09:27 Lymphocytes # 2.3 k/uL (1.0-4.8) 11/09/21 09:27 Monocytes # 0.3 k/uL (0-1.0) 11/09/21 09:27 Eosinophils # 0.2 k/uL (0-0.7) 11/09/21 09:27 Basophils # 0.0 k/uL (0-0.2) 11/09/21 09:27 Sodium 139 mmol/L (137-145) 11/09/21 09:27 Potassium 5.1 mmol/L (3.5-5.1) 11/09/21 09:27 Chloride 108 mmol/L (98-107) H 11/09/21 09:27 Carbon Dioxide 26 mmol/L (22-30) 11/09/21 09:27 Anion Gap 5 mmol/L 11/09/21 09:27 BUN 14 mg/dL (9-20) 11/09/21 09:27 Creatinine 0.86 mg/dL (0.66-1.25) 11/09/21 09:27 Est GFR (CKD-EPI)AfAm >90 (>60 ml/min/1.73 sqM) 11/09/21 09:27 Est GFR (CKD-EPI)NonAf >90 (>60 ml/min/1.73 sqM) 11/09/21 09:27 Glucose 72 mg/dL (74-99) L 11/09/21 09:[address] Glu mg/dL 102 11/09/21 09:27 Hemoglobin A1c 5.2 % (0.0-6.0) 11/09/21 09:27 Calcium 9.2 mg/dL (8.4-10.2) 11/09/21 09:27 Total Bilirubin 0.4 mg/dL (0.2-1.3) 11/09/21 09:27 Conjugated Bilirubin 0.0 mg/dL (0.0-0.3) 11/09/21 09:27 Unconjugated Bilirubin 0.3 mg/dL (0.0-1.1) 11/09/21 09:27 Delta Bilirubin 0.1 mg/dL (0.0-0.2) 11/09/21 09:27 AST 20 U/L (17-59) 11/09/21 09:27 ALT 17 U/L (4-49) 11/09/21 09:27 Alkaline Phosphatase 60 U/L (38-126) 11/09/21 09:27 Total Protein 7.5 g/dL (6.3-8.2) 11/09/21 09:27 Albumin 4.6 g/dL (3.5-5.0) 11/09/21 09:27 Triglycerides 161.00 mg/dL (0.00-149.00) H 11/09/21 09:27 Cholesterol 207.00 mg/dL (0.00-200.00) H 11/09/21 09:27 LDL Cholesterol, Calc 130.5 mg/dL (0.0-131.0) 11/09/21 09: VLDL Cholesterol, Calc 32.20 mg/dL (5.00-40.00) 11/09/21 09: HDL Cholesterol 44.30 mg/dL (40.00-60.00) 11/09/21 09: Cholesterol/HDL Ratio 4.67 Ratio 11/09/21 09: Amylase 66 U/L (30-110) 11/08/21 13:36 Lipase 123 U/L (23-300) 11/08/21 13:36 TSH 1.800 mIU/L (0.465-4.680) 11/09/21 09:27 Urine Color Light Yellow 11/08/21 13:39 Urine Appearance Clear (Clear) 11/08/21 13:39 Urine pH 5.5 (5.0-8.0) 11/08/21 13:39 Ur Specific Terril 1.011 (1.001-1.035) 11/08/21 13:39 Urine Protein Negative (Negative) 11/08/21 13:39 Urine Glucose (UA) Negative (Negative) 11/08/21 13:39 Urine Ketones Negative (Negative) 11/08/21 13:39 Urine Blood Negative (Negative) 11/08/21 13:39 Urine Nitrite Negative (Negative) 11/08/21 13:39 Urine Bilirubin Negative (Negative) 11/08/21 13:39 Urine Urobilinogen <2.0 mg/dL (<2.0) 11/08/21 13:39 Ur Leukocyte Esterase Trace (Negative) H 11/08/21 13:39 Urine RBC <1 /hpf (0-5) 11/08/21 13:39 Urine WBC 1 /hpf (0-5) 11/08/21 13:39 Urine Mucus Rare /hpf (None) H 11/08/21 13:39 Urine Opiates Screen Not Detected (NotDetected) 11/08/21 13:39 Ur Oxycodone Screen Not Detected (NotDetected) 11/08/21 13:39 Urine Methadone Screen Not Detected (NotDetected) 11/08/21 13:39 Ur Propoxyphene Screen Not Detected (NotDetected) 11/08/21 13:39 Ur Barbiturates Screen Not Detected (NotDetected) 11/08/21 13:39 U Tricyclic Antidepress Not Detected (NotDetected) 11/08/21 13:39 Ur Phencyclidine Scrn Not Detected (NotDetected) 11/08/21 13:39 Ur Amphetamines Screen Not Detected (NotDetected) 11/08/21 13:39 U Methamphetamines Scrn Not Detected (NotDetected) 11/08/21 13:39 U Benzodiazepines Scrn Not Detected (NotDetected) 11/08/21 13:39 Urine Cocaine Screen Not Detected (NotDetected) 11/08/21 13:39 U Marijuana (THC) Screen Not Detected (NotDetected) 11/08/21 13:39 Coronavirus (PCR) Not Detected (Not Detectd) 11/08/21 Unknown Vital Signs Temp 98 F 11/10/21 07:04 Pulse 72 11/10/21 07:04 Resp 18 11/09/21 10:24 BP 130/72 11/11/21 09:05 Pulse Ox 98 11/09/21 10:24 FiO2 Intake & Output 11/11/21 11/12/21 11/12/21 18:59 06:59 18:59 Weight 93.5 kg Patient Condition at Discharge: Stable Plan - Discharge Summary Discharge Rx Participant: No New Discharge Prescriptions: New Nicotine 14Mg/24Hr Patch [Habitrol] 1 patch TRANSDERM DAILY 14 Days patch Mirtazapine [Remeron] 15 mg PO HS 30 Days tab hydrOXYzine pamoate [Vistaril] 25 mg PO BID PRN 14 Days cap PRN Reason: Anxiety levETIRAcetam [Keppra] 500 mg PO Q12HR 30 Days tab Melatonin 5 mg PO HS PRN 30 Days tab PRN Reason: Insomnia Sertraline [Zoloft] 100 mg PO DAILY 30 Days tab Discontinued levETIRAcetam [Keppra] 500 mg PO Q12HR 30 Days #60 tab Ibuprofen [Motrin] 800 mg PO Q8H PRN #30 tab PRN Reason: Pain Discharge Medication List Melatonin 5 mg PO HS PRN 30 Days tab 11/12/21 [Rx] Mirtazapine [Remeron] 15 mg PO HS 30 Days tab 11/12/21 [Rx] Nicotine 14Mg/24Hr Patch [Habitrol] 1 patch TRANSDERM DAILY 14 Days patch 11/12/21 [Rx] Sertraline [Zoloft] 100 mg PO DAILY 30 Days tab 11/12/21 [Rx] hydrOXYzine pamoate [Vistaril] 25 mg PO BID PRN 14 Days cap 11/12/21 [Rx] levETIRAcetam [Keppra] 500 mg PO Q12HR 30 Days tab 11/12/21 [Rx] Follow up Appointment(s)/Referral(s): None,Stated [Primary Care Provider] - 1-2 days [facility] [NON-STAFF] - 1 Week Patient Instructions/Handouts: How to Stop Smoking (DC), Depression (DC) Activity/Diet/Wound Care/Special Instructions: Avoid the use of street drugs and alcohol. Take all prescriptions as prescribed. When you are in need of refills on your medications, please contact your medical provider and/or outpatient psychiatrist to have this done. Please go to scheduled outpatient appointment for aftercare treatment. If symptoms return or become worse, call the crisis line at and/or go to the nearest emergency room for evaluation. Discharge Disposition: HOME SELF-CARE
== END 2021-11-12 15:02 | disposition home or self-care (01) | DRG 885 ==
LOC: EC 12:31 → 3MHU 20:25
PROVIDERS: ADMIT Psychiatry & Neurology Psychiatry; ATTEND Psychiatry & Neurology Psychiatry
DX: F32.2 Major depressive disorder, single episode, severe without psychotic features (principal); R45.851 Suicidal ideations; F15.11 Other stimulant abuse, in remission; F17.210 Nicotine dependence, cigarettes, uncomplicated; F41.9 Anxiety disorder, unspecified; G40.909 Epilepsy, unspecified, not intractable, without status epilepticus; G47.00 Insomnia, unspecified; F19.10 Other psychoactive substance abuse, uncomplicated; G89.29 Other chronic pain; M25.511 Pain in right shoulder; I10 Essential (primary) hypertension; Z28.21 Immunization not carried out because of patient refusal; Z20.822 Contact with and (suspected) exposure to COVID-19; Z79.899 Other long term (current) drug therapy; Z80.7 Family history of other malignant neoplasms of lymphoid, hematopoietic and related tissues; Z81.8 Family history of other mental and behavioral disorders; Z82.49 Family history of ischemic heart disease and other diseases of the circulatory system; Z91.19 Patient's noncompliance with other medical treatment and regimen; Z56.0 Unemployment, unspecified; Z71.51 Drug abuse counseling and surveillance of drug abuser; Z91.041 Radiographic dye allergy status
CPT/HCPCS: 36415; 74018; 80053; 80061; 80306; 81001; 82075; 82150; 82248; 83036; 83690; 84443; 85025; 87635; 99285